=== PATIENT | male | born 1975 | race Two or more races ===

== ENCOUNTER → 2017-09-03 | Outpatient (CLI) | payer BC ==
[2017-09-03 10:34] LABS: Albumin 4.1 g/dL (3.4-5.0); Bilirubin, Direct 0.2 mg/dL (0-0.2); Bilirubin, Total 0.6 mg/dL (0.2-1.0); Total Protein 8.9 g/dL (6.4-8.2)
== END | disposition home or self-care (01) ==
LOC: LAB 09:32
PROVIDERS: ATTEND Internal Medicine Gastroenterology
DX: R79.89 Other specified abnormal findings of blood chemistry (principal)
CPT/HCPCS: 36415; 80076

== ENCOUNTER → 2017-09-09 | Outpatient (CLI) | payer BC ==
[2017-09-09 18:35] LABS: % Iron Saturation 4.4 % (20-55)
[2017-09-10 09:12] LABS: Hepatitis B Surface Antibody Negative
[2017-09-10 09:27] LABS: Hepatitis B Surface Antigen Negative (Negative)
[2017-09-10 09:50] LABS: Hepatitis C Antibody Negative (Negative)
[2017-09-10 09:51] LABS: Hepatitis A Total Antibody Negative; Hepatitis B Core Total AB Negative
== END | disposition home or self-care (01) ==
LOC: LAB 10:08
PROVIDERS: ATTEND Internal Medicine Gastroenterology
DX: R79.89 Other specified abnormal findings of blood chemistry (principal)
CPT/HCPCS: 36415; 83540; 83550; 86704; 86706; 86708; 86803; 87340

== ENCOUNTER → 2017-09-14 | Outpatient (CLI) | payer BC ==
[2017-09-14 11:06] LABS: Basophils # (auto) 0.1 uL; Eosinophils # (auto) 0.1 uL; Lymphocytes # (auto) 1.6 uL; Monocytes # (auto) 0.5 uL; Nucleated Red Blood Cells % 0.1 %
[2017-09-14 11:07] LABS: Basophils % (auto) 1.6 % (0.0-2.0); Hematocrit 44.7 % (41.0-53.0); Hemoglobin 14.4 g/dL (13.5-17.5); Lymphocytes % (auto) 20.3 % (10.0-50.0); Mean Corpuscular Hemoglobin 25.3 pg (28.0-32.0); Mean Corpuscular Hgb Conc. 32.2 g/dL (32.0-36.0); Mean Corpuscular Volume 78.7 fL (80.0-100.0); Monocytes % (auto) 6.4 % (0.0-12.0); Neutrophils # (auto) 5.7 uL; Neutrophils % (auto) 70.7 % (37.0-80.0); Platelet Count (auto) 395 10^3/uL (140-450); Red Blood Cells 5.68 10^6/uL (4.5-5.90); Red Cell Distribution Width 16.4 % (11.8-14.3)
[2017-09-14 11:16] LABS: INR 1.06 (0.9-1.15); Prothrombin Time 11.6 sec (9.37-12.3)
[2017-09-14 11:24] LABS: BUN/Creatinine Ratio 6.7; Bilirubin, Total 0.5 mg/dL (0.2-1.0); Calcium 9.1 mg/dL (8.5-10.1); Potassium 4.6 mmol/L (3.5-5.1); Total Protein 8.7 g/dL (6.4-8.2)
== END | disposition home or self-care (01) ==
LOC: LAB 10:41
DX: E11.65 Type 2 diabetes mellitus with hyperglycemia (principal)
CPT/HCPCS: 36415; 80053; 80061; 83036; 85025; 85610; 85730

== ENCOUNTER 2021-09-02 06:46 | Emergency (ER) | payer BC, MEDICAID ==
[~2021-09-02] VITALS: Ht 172.7 cm; Wt 113.4 kg
[2021-09-02 07:39] VITALS: BP 163/81
[2021-09-02 08:38] LABS: Urine Bacteria NONE SEEN /hpf (None Seen); Urine Blood Negative /uL (Negative); Urine Specific Gravity 1.019 (1.001-1.035); Urine WBC <1 /hpf (0 - 3)
[2021-09-02 08:43] LABS: Basophils # (auto) 0 10 ^3/uL (0-0.2); Basophils % (auto) 1.1 % (0.0-2.0); Eosinophils # (auto) 0 10 ^3/uL (0-0.8); Eosinophils % (auto) 0.6 % (0.0-7.0); Hematocrit 50.9 % (41.0-53.0); Hemoglobin 17.5 g/dL (13.5-17.5); Lymphocytes # (auto) 1.1 10 ^3/uL (0.4-5.4); Lymphocytes % (auto) 23.6 % (10.0-50.0); Mean Corpuscular Hemoglobin 31.7 pg (28.0-32.0); Mean Corpuscular Hgb Conc. 34.3 g/dL (32.0-36.0); Mean Corpuscular Volume 92.3 fL (80.0-100.0); Monocytes # (auto) 0.7 10 ^3/uL (0-1.3); Monocytes % (auto) 14.6 % (0.0-12.0); Neutrophils # (auto) 2.7 10 ^3/uL (1.6-8.6); Neutrophils % (auto) 60.1 % (37.0-80.0); Nucleated Red Blood Cells % 0.5 %; Red Blood Cells 5.51 10^6/uL (4.5-5.90); Red Cell Distribution Width 12.5 % (11.8-14.3); White Blood Cell 4.5 10^3/uL (4.4-10.8)
[2021-09-02 09:05] LABS: Potassium 4.7 mmol/L (3.5-5.1)
[2021-09-02 09:14] LABS: Albumin 3.5 g/dL (3.4-5.0); Bilirubin, Total 0.7 mg/dL (0.2-1.0); Calcium 8.2 mg/dL (8.5-10.1); Total Protein 8.2 g/dL (6.4-8.2)
[2021-09-02] MEDS ORDERED: PRED10TA PO (09:31)
[2021-09-02] MEDS ORDERED: ALBUAER3 IN (09:31)
[2021-09-02] MEDS ORDERED: AMOX-277 PO (09:31)
[2021-09-02] MEDS ORDERED: LIDOCAINE 1% HCL (LOCAL ANESTH.) INJ 20ML MDV ONE (10:33)
== END 2021-09-02 10:05 | disposition home or self-care (01) ==
LOC: ER 06:46
DX: U07.1 COVID-19 (principal); J06.9 Acute upper respiratory infection, unspecified; E11.9 Type 2 diabetes mellitus without complications
CPT/HCPCS: 36415; 71045; 80053; 81001; 83690; 85025; 87426; 99284; J2001

== ENCOUNTER 2024-01-08 05:27 | Emergency (ER) | payer MEDICAID ==
[~2024-01-08] VITALS: Ht 172.7 cm; Wt 127.7 kg
[~2024-01-08 05:27] MED LIST: ALBUAER3 IN; AMOX875T4 PO; GABA-339 PO; GLIP10TA21 PO; PRED10TA PO
[2024-01-08] MEDS: SODIUM CHLORIDE 0.9% 1,000 ML IVB ONE (08:00)
[2024-01-08 08:01] LABS: Urine Bacteria None Seen /hpf (None Seen)
[2024-01-08 08:19] LABS: Urine Blood Negative /uL (Negative); Urine Clarity Clear (Clear); Urine Color Light-Yellow (Yellow); Urine Protein, UAD Negative (Negative); Urine Specific Gravity 1.015 (1.001-1.035); Urine Urobilinogen Normal (Negative); Urine WBC 1 /hpf (0 - 3); Urine pH 5.5 (5.0-9.0)
[2024-01-08] MEDS: SODIUM CHLORIDE 0.9% 1,000 ML IV ONE (08:21)
[2024-01-08 08:30] LABS: Basophils # (auto) 0.1 10 ^3/uL (0-0.2); Eosinophils # (auto) 0.1 10 ^3/uL (0-0.8); Eosinophils % (auto) 1.5 % (0.0-7.0); Hematocrit 50.2 % (41.0-53.0); Hemoglobin 17.2 g/dL (13.5-17.5); Lymphocytes # (auto) 1.8 10 ^3/uL (0.4-5.4); Lymphocytes % (auto) 25.5 % (10.0-50.0); Mean Corpuscular Hemoglobin 31.9 pg (28.0-32.0); Mean Corpuscular Hgb Conc. 34.3 g/dL (32.0-36.0); Mean Corpuscular Volume 93.1 fL (80.0-100.0); Monocytes # (auto) 0.5 10 ^3/uL (0-1.3); Monocytes % (auto) 7.1 % (0.0-12.0); Neutrophils # (auto) 4.6 10 ^3/uL (1.6-8.6); Neutrophils % (auto) 64.9 % (37.0-80.0); Nucleated Red Blood Cells % 0.1 %; Red Blood Cells 5.39 10^6/uL (4.5-5.90); Red Cell Distribution Width 13.2 % (11.8-14.3); White Blood Cell 7.1 10^3/uL (4.4-10.8)
[2024-01-08] MEDS: KETOROLAC TROMETH 30 MG/ML 1ML VIAL IV ONE (08:31)
[2024-01-08] MEDS: METOCLOPRAMIDE HCL 5MG/ml INJ 2ml VIAL IV ONE (08:31)
[2024-01-08 08:35] LABS: Alanine Aminotransferase 31 U/L (7-40); Albumin 4.6 g/dL (3.2-4.8); Alkaline Phosphatase 127 U/L (46-116); Anion Gap 5 (5-15); Aspartate Aminotransferase 33 U/L (13-40); BUN/Creatinine Ratio 10.6 (10.0-20.0); Bilirubin, Total 0.7 mg/dL (0.2-1.0); Blood Urea Nitrogen 9 mg/dL (9-23); Calcium 9.6 mg/dL (8.5-10.1); Carbon Dioxide 27 mmol/L (20-30); Chloride 100 mmol/L (98-107); Glucose 210 mg/dL (74-106); Potassium 4.3 mmol/L (3.5-5.1); Sodium 132 mmol/L (136-145)
[2024-01-08 08:53] LABS: Lipase 39 U/L (12-53)
[2024-01-08 08:54] LABS: Magnesium 1.8 mg/dL (1.6-2.6)
[2024-01-08] MEDS: IOHEXOL 300 MG/ML 100ML BOTTLE IJ ONE (09:00)
[2024-01-08 10:08] VITALS: TEMP 98
[2024-01-08] MEDS: ONDANSETRON HCL 4 MG/2 ML VIAL IV ONE (10:13)
[2024-01-08] MEDS: MORPHINE SULFATE 4 MG/ML SYR/VIAL IV ONE (10:15)
[2024-01-08] MEDS ORDERED: METO-281 PO (10:37)
[2024-01-08] MEDS ORDERED: HYDR-4902 PO (10:37)
[2024-01-08 10:42] VITALS: O2SAT 96
[2024-01-08 10:46] VITALS: BP 141/76; PULSE 76; RESP 18
== END 2024-01-08 10:58 | disposition home or self-care (01) ==
LOC: ER 05:27
DX: I10 Essential (primary) hypertension (principal); E11.65 Type 2 diabetes mellitus with hyperglycemia; N20.0 Calculus of kidney; K76.0 Fatty (change of) liver, not elsewhere classified; R10.31 Right lower quadrant pain; F10.90 Alcohol use, unspecified, uncomplicated; Z79.899 Other long term (current) drug therapy; Y90.0 Blood alcohol level of less than 20 mg/100 ml
CPT/HCPCS: 36415; 74177; 80053; 81001; 83690; 83735; 85025; 96361; 96374; 96375; 99285; J1885; J2270; J2405; J2765; J7030; Q9967

== ENCOUNTER 2025-04-12 08:03 | Emergency (ER) | payer MEDICAID ==
[~2025-04-12] VITALS: Ht 172.7 cm; Wt 118.0 kg
[~2025-04-12 08:03] MED LIST changes: +HYDR-4902 PO; +METO-281 PO
--- NOTE | 2025-04-12 08:55 | ED.PDOC ---
General HPI Comments A 50-YEAR-OLD MALE WITH A HISTORY OF DIABETES, AND HEAVY ALCOHOL ABUSE, PRESENTS TO THE ED WITH A C/C OF LEFT-SIDED FLANK PAIN WITH THE ASSOCIATED RADIATING LEFT LOWER ABDOMINAL PAIN, AND NAUSEA. PATIENT STATES THAT HIS SYMPTOMS HAVE BEEN ONSET FOR THE PAST 4 DAYS, BUT NOTES THAT THEY HAVE WORSENED SINCE LAST NIGHT. MOVEMENT AND PHYSICAL ACTIVITY INCREASES THE PAIN. PATIENT NOTES HAVE NO ALLEVIATING FACTORS. PATIENT DENIES ANY VOMITING, DIARRHEA, DYSURIA, HEMATURIA, OR ANY OTHER ASSOCIATED SYMPTOMS, MODIFIERS AT THIS TIME. Chief Complaint: Flank Pain Time Seen by MD: 08:51 Reviewed notes: Nurses Notes, Medications, Allergies Allergies: Coded Allergies: NO KNOWN ALLERGIES (Unverified , 11/11/23) Home Meds Active Scripts Hydrocodone-Acetaminophen (Hydrocodone Bitartrate/AC 5-325 mg) 1 Tab Tab, 1 TAB PO BID for 5 Days, #10 TAB Prov:SUSAN CARRILLO MD 01/08/24 Metoclopramide Hcl (Reglan) 10 Mg Tab, 10 MG PO BID for 5 Days, #10 TAB Prov:SUSAN CARRILLO MD 01/08/24 Gabapentin (Gabapentin) 600 Mg Tab, 1 TAB PO BID, #40 TAB Prov:DARYN BHATT 11/11/23 Glipizide (Glipizide Er) 10 Mg Tab, 1 TAB PO DAILY, #30 TAB Prov:DARYN BHATT 11/11/23 Albuterol Sulfate (VENTOLIN MDI) 90 Mcg Ih, 90 MCG IN QIDP, #1 INH 0 Refills Prov:IVANA CRUMP 09/02/21 Prednisone (Prednisone) 10 Mg Tab, 10 MG PO BID for 5 Days, #10 MG 0 Refills Prov:IVANA CRUMP 09/02/21 Amoxicillin & Pot Clavulanate (Amoxicillin/Potassium Cla) 875 Mg Tab, 1 TAB PO BID for 10 Days, #20 TAB 0 Refills Prov:IVANA CRUMP 09/02/21 Information Source: Patient Mode of Arrival: Ambulatory Severity: Moderate Inability to void: None Timing: Days Duration: Intermittent, Days Prehospital treatment: None Onset: Spontaneous Symptoms: None History of: None Location: (L)Flank associated signs and symptoms: Abdominal Pain, Nausea Past Medical History PAST MEDICAL HISTORY: DM Surgical History: Denies all surgeries Family History Family History: Reviewed,noncontributory to illness Social History Smoker: Non-Smoker Alcohol: Heavy Drugs: Denies Drug Use Lives In: Home Constitutional: denies: chills, diaphoresis, fatigue, fever, malaise, sweats, weakness, others EENTM: denies: blurred vision, double vision, ear bleeding, ear discharge, ear drainage, ear pain, ear ringing, eye pain, eye redness, hearing loss, mouth pain, mouth swelling, nasal discharge, nose bleeding, nose congestion, nose pain, photophobia, tearing, throat pain, throat swelling, voice changes, others Respiratory: denies: cough, hemoptysis, orthopnea, SOB at rest, shortness of breath, SOB with excertion, stridor, wheezing, others Cardiovascular: denies: chest pain, dizzy spells, diaphoresis, Dyspnea on exertion, edema, irregular heart beat, left arm pain, lightheadedness, p alpitations, PND, syncope, others Gastrointestinal: denies: abdomen distended, abdominal pain, blood streaked bowels, constipated, diarrhea, dysphagia, difficulty swallowing, hematemesis, melena, nausea, poor appetite, poor fluid intake, rectal bleeding, rectal pain, vomiting, others Genitourinary: reports: flank pain; denies: burning, dysuria, frequency, hematuria, incontinence, penile discharge, penile sore, pain, testicle pain, testicle swelling, urgency, others Neurological: denies: dizziness, fainting, headache, left sided numbness, left sided weakness, numbness, paresthesia, pre-existing deficit, right sided numbness, right sided weakness, seizure, speech problems, tingling, tremors, weakness, others Musculoskeletal: denies: back pain, gout, joint pain, joint swelling, muscle pain, muscle stiffness, neck pain, others Integumetry: denies: bruises, change in color, change in hair/nails, dryness, laceration, lesions, lumps, rash, wounds, others Allergic/Immunocompromised: denies: Difficulty Healing, Frequent Infections, Hives, Itching, others Hematologic/Lymphatic: denies: anemia, blood clots, easy bleeding, easy bruising, swollen glands, others Endocrine: denies: excessive hunger, excessive sweating, excessive thirst, excessive urination, flushing, intolerance to cold, intolerance to heat, unexplained weight gain, unexplained weight loss, others Psychiatric: denies: anxiety, bipolar disorder, depression, hopeless, panic disorder, schizophrenia, sleepless, suicidal, others All Other Systems: Reviewed and Negative Physical Exam General Appearance: No Apparent Distress, Obese HEENT: Normal ENT Inspection, PERRL/EOMI, Pharynx Normal, TMs Normal Neck: Full Range of Motion, Non-Tender, Normal, Normal Inspection Respiratory: Chest Non-Tender, Lungs Clear, No Accessory Muscle Use, No Respiratory Distress, Normal Breath Sounds Cardiovascular: No Edema, No JVD, No Murmur, No Gallop, Normal Peripheral Pulses, Regular Rate/Rhythm Breast Exam: Deferred Gastrointestinal: LLQ, No Organomegaly, No Pulsatile Mass, Normal Bowel Sounds, Soft, Tenderness (LEFT FLANK TO LEFT LOWER ABD, NO GUARDING AND REBOUND TENDERNESS. ) Genitalia: Deferred Pelvic: Deferred Rectal: Deferred Extremities: No calf tenderness, Normal capillary refill, Normal inspection, Normal range of motion, Non-tender, No pedal edema Musculoskeletal : Apperance: Normal Neurologic: Alert, hack driver II-XII nml as Tested, No Motor Deficits, Normal Affect, Normal Mood, No Sensory Deficits Cerebellar Function: Normal Reflexes: Normal Skin: Dry, Normal Color, Warm Peripheral Pulses: 2+ carotid (R), 2+ carotid (L) Lymphatic: No Adenopathy Was a procedure done? Was a procedure done?: No Differential Diagnosis Kidney stone (Female): Musculoskeletal pain, N/A Kidney stone (Male): Pancreatitis, Strain, Urinary obstruction, Urolithiasis, Urinary tract infection Penile/Scrotal: N/A Urinary Problem (Male): Urolithiasis, UTI Urinary Problem (Female): N/A X-Ray, Labs, Meds, VS Vital Signs Date Time Temp Pulse Resp B/P (MAP) Pulse Ox O2 Delivery O2 Flow Rate FiO2 04/12/25 08:04 98.0 83 18 165/92 96 98.0 Lab Test 04/12/25 09:23 04/12/25 08:45 Range/Units White Blood Count 5.1 4.4-10.8 10^3/uL Red Blood Count 5.59 4.5-5.90 10^6/uL Hemoglobin 17.2 13.5-17.5 g/dL Hematocrit 49.6 41.0-53.0 % Mean Corpuscular Volume 88.7 80.0-100.0 fL Mean Corpuscular Hemoglobin 30.8 28.0-32.0 pg Mean Corpuscular Hemoglobin Concent 34.7 32.0-36.0 g/dL Red Cell Distribution Width 14.0 11.8-14.3 % Platelet Count 219 140-450 10^3/uL Mean Platelet Volume 8.2 6.9-10.8 fL Neutrophils (%) (Auto) 68.1 37.0-80.0 % Lymphocytes (%) (Auto) 21.0 10.0-50.0 % Monocytes (%) (Auto) 8.5 0.0-12.0 % Eosinophils (%) (Auto) 1.6 0.0-7.0 % Basophils (%) (Auto) 0.8 0.0-2.0 % Neutrophils # (Auto) 3.5 1.6-8.6 10 ^3/uL Lymphocytes # (Auto) 1.1 0.4-5.4 10 ^3/uL Monocytes # (Auto) 0.4 0-1.3 10 ^3/uL Eosinophils # (Auto) 0.1 0-0.8 10 ^3/uL Basophils # (Auto) 0 0-0.2 10 ^3/uL Nucleated Red Blood Cells 0.1 % Sodium Level 134 L 136-145 mmol/L Potassium Level 4.0 3.5-5.1 mmol/L Chloride Level 99 98-107 mmol/L Carbon Dioxide Level 26 20-31 mmol/L Anion Gap 9 5-15 Blood Urea Nitrogen 8 L 9-23 mg/dL Creatinine 0.88 0.700-1.30 mg/dL Glomerular Filtration Rate Calc 104 >90 mL/min BUN/Creatinine Ratio 9.1 L 10.0-20.0 Serum Glucose 318 H 74-106 mg/dL Calcium Level 9.1 8.7-10.4 mg/dL Total Bilirubin 0.7 0.2-1.0 mg/dL Aspartate Amino Transferase (AST) 31 13-40 U/L Alanine Aminotransferase (ALT) 33 7-40 U/L Alkaline Phosphatase 133 H 46-116 U/L Total Protein 7.5 5.7-8.2 g/dL Albumin 4.4 3.2-4.8 g/dL Lipase 48 12-53 U/L Urine Color Yellow Yellow Urine Clarity Clear Clear Urine pH 5.5 5.0-9.0 Urine Specific Letcher 1.021 1.001-1.035 Urine Protein 1+ H Negative Urine Ketones Trace Negative Urine Blood Negative Negative /uL Urine Nitrite Negative Negative Urine Bilirubin Negative Negative Urine Urobilinogen Normal Negative mg/dL Urine Leukocyte Esterase Negative Negative /uL Urine RBC 1 0 - 3 /hpf Urine Microscopic WBC 1 0-3 /HPF Urine Squamous Epithelial Cells None seen <5 /hpf Urine Bacteria None seen None Seen /hpf Urine Hyaline Casts Few 0 - 2 /lpf Urine Mucus Few None Seen Urine Glucose 3+ H Normal mg/dL PATIENT: ELIZABETH VALLES ACCT: [id number] UNIT: [id number] : 1975 LOC: ER ROOM / BED: / AGE / SEX: 50 / M ADM STATUS: REG ER SERVICE [id number] ORDERING PHYSICIAN: DARYN BHATT PROCEDURE(s): ABPL - CT AB PEL WO CON-NO ORAL OR IV REASON: LEFT FLANK PAIN TO LEFT LOWER ABD ORDER NUMBER(s): [id number], ACCESSION NUMBER(s): [id number] Exam: CT abdomen and Pelvis without contrast History: LEFT FLANK PAIN TO LEFT LOWER ABD Comparison Study: None available at time of dictation. TECHNIQUE: Multidetector CT of the abdomen was performed from lung bases to pubic symphysis. Imaging was performed without IV contrast. Axial, coronal and sagittal multiplanar reformats were obtained from the axial data set by the technologist. Radiation Dose Information: CT Dose: CTDI volume is 25 mGy. Dose-length product is 250 mGy*cm FINDINGS: Evaluation of solid organs is limited due to lack of intravenous contrast use. Findings: Lung Bases: No acute or significant lung base finding. Normal heart size. No p leural or pericardial effusion. Liver: Hepatic steatosis. Gallbladder and Biliary Tree: Unremarkable Spleen: Unremarkable Pancreas: The pancreas is grossly normal in appearance. Adrenal Glands: Unremarkable Kidneys: Kidneys are grossly normal without calculi or hydronephrosis. Bladder: Grossly unremarkable for degree of distention. Bowel: The stomach is grossly normal in appearance. Small bowel and colon are normal in caliber and distribution. The appendix is not visualized; however, no secondary findings of acute appendicitis identified. Ascites: Absent Lymphadenopathy: No mesenteric, retroperitoneal or periportal lymphadenopathy. Abdominal Wall and Mesentery: 19 mm umbilical hernia Vasculature: The visualized abdominal aorta is normal in size and caliber. Evaluation of abdominal and pelvic vessels is limited due to lack of intravenous contrast. Pelvic Organs: Unremarkable Musculoskeletal: No aggressive focal bony lesions, acute fractures or dislocation. Soft tissues: Unremarkable IMPRESSION: No acute abdominal or pelvic finding. Hepatic steatosis Radiation optimization: All CT scans at this facility use at least one of these dose optimization techniques: automated exposure control mA and/or kV adjustment per patient size (includes targeted exams where dose is matched to clinical indication) or iterative reconstruction. X-Ray, Labs, Meds, VS Comment EXTERNAL MEDICAL RECORDS REVIEWED: [NONE] INDEPENDENT HISTORIANS: [NONE] SOCIAL DETERMINANTS OF HEALTH: [NONE] LABS ORDERED: CBC, CMP, UA, LIPASE ORDERED AND PENDING REVIEWED AND INTERPRETED RESULTS: NONE IMAGING ORDERED: CT ABDOMINAL PELVIC ORDERED AND PENDING TREATMENTS ORDERED: NORCO 10/325 PO PROCEDURES PERFORMED: NONE CRITICAL CARE TIME: NONE I HAVE DISCUSSED THE PATIENT WITH THE ATTENDING PHYSICIAN (LORENA) AND S/HE AGREES WITH THE PATIENT'S PLAN OF CARE AND DISPOSITION. BASED ON HISTORY OF PRESENT ILLNESS, AND PHYSICAL EXAM, PATIENT WILL BE DISCHARGED HOME. DISCUSSED PLAN FOR DISCHARGE HOME WITH RX [ULTRAM 50MG]. MEDICATION WARNINGS GIVEN. SHARED DECISION MAKING: DISCUSSED WITH PATIENT THAT THEIR WORKUP WAS NORMAL. PATIENT INSTRUCTED TO FOLLOW UP WITH PRIMARY CARE PROVIDER IN 1-2 DAYS FOR RE- EVALUATION OF SYMPTOMS. PATIENT VERBALIZES UNDERSTANDING TO RETURN TO ED FOR NEW OR WORSENING SYMPTOMS OR IF FOLLOW UP WITH PCP CANNOT BE OBTAINED. PATIENT FEELS COMFORTABLE GOING HOME AT THIS TIME. ALL QUESTIONS ADDRESSED AT TIME OF DISCHARG E. Time of 1ST Reevaluation: 10:00 Reevaluation 1ST: Improved Patient Education/Counseling: Diagnosis, Treatment, Need For Follow Up Family Education/Counseling: Treatment, No Family Present Medical Screening: No EMC Exist At This Time SEPSIS Sepsis Screen Date sepsis recognized/suspect: Apr 12, 2025 Time Sepsis recognized/suspect: 804 Recent Procedure: No On Antibiotic Therapy: No Respiratory Rate >20: No Heart Rate >90: No Temp<36 C (96.8 F) or >38.3 C: No SBP <90 or MAP <65 mmHG: No New Acute Mental Status Change: No Is the patient on CPAP, BIPAP,: No Physician Orders Ct Ab Pel Wo Con-No Oral Or Iv (04/12/25 08:46) Vital Signs Date Time Temp Pulse Resp B/P (MAP) Pulse Ox O2 Delivery O2 Flow Rate FiO2 04/12/25 08:04 98.0 83 18 165/92 96 98.0 Laboratory Tests Test 04/12/25 09:23 White Blood Count 5.1 10^3/uL (4.4-10.8) Departure 1 Departure Time of Disposition: 10:00 Impression: Primary Impression: Left flank pain Additional Impression: Muscle strain Disposition: HOME / SELF CARE / HOMELESS Condition: Stable Additional Instructions: FOLLOW-UP WITH PCP IN 1 TO 2 DAYS. TAKE MEDICATIONS PRESCRIBED. RETURN TO ED FOR ANY NEW OR WORSENING SYMPTOMS. e-Prescriptions Tramadol HCl (Tramadol HCl) 50 Mg Tab 50 MG PO BID, #20 TAB Prov: DARYN BHATT 04/12/25 Discharged With: Self Critical Care Note Critical Care Time?: No Stability Stability form required: No Heart Score Heart Score: Heart Score Response (Comments) Value History N/A 0 EKG N/A 0 Age N/A 0 Risk Factors N/A 0 Troponin N/A 0 Total 0 I personally scribed for DARYN BHATT ([email or web address]) on 04/12/25 at 08:55. Electronically submitted by Evaristo Dickinson ([email or web address]). I personally scribed for DARYN BHATT ([email or web address]) on 04/12/25 at 08:56. Electronically submitted by Evaristo Dickinson ([email or web address]). I personally scribed for DARYN BHATT ([email or web address]) on 04/12/25 at 09:23. Electronically submitted by Evaristo Dickinson ([email or web address]). I personally scribed for DARYN BHATT ([email or web address]) on 04/12/25 at 09:57. Electronically submitted by Evaristo Dickinson ([email or web address]). DARYN BHATT Apr 12, 2025 08:55
[2025-04-12 09:17] LABS: Urine Protein, UAD 1+ (Negative)
--- NOTE | 2025-04-12 09:22 | DVH ---
Exam: CT abdomen and Pelvis without contrast History: LEFT FLANK PAIN TO LEFT LOWER ABD Comparison Study: None available at time of dictation. TECHNIQUE: Multidetector CT of the abdomen was performed from lung bases to pubic symphysis. Imaging was performed without IV contrast. Axial, coronal and sagittal multiplanar reformats were obtained fr om the axial data set by the technologist. Radiation Dose Information: CT Dose: CTDI volume is 25 mGy. Dose-length product is 250 mGy*cm FINDINGS: Evaluation of solid organs is limited due to lack of intravenous contrast use. Findings: Lung Bases: No acute or significant lung base finding. Normal heart size. No pleural or pericardial effusion. Liver: Hepatic steatosis. Gallbladder and Biliary Tree: Unremarkable Spleen: Unremarkable Pancreas: The pancreas is grossly normal in appearance. Adrenal Glands: Unremarkable Kidneys: Kidneys are grossly normal without calculi or hydronephrosis. Bladder: Grossly unremarkable for degree of distention. Bowel: The stomach is grossly normal in appearance. Small bowel and colon are normal in caliber and d istribution. The appendix is not visualized; however, no secondary findings of acute appendicitis id entified. Ascites: Absent Lymphadenopathy: No mesenteric, retroperitoneal or periportal lymphadenopathy. Abdominal Wall and Mesentery: 19 mm umbilical hernia Vasculature: The visualized abdominal aorta is normal in size and caliber. Evaluation of abdominal a nd pelvic vessels is limited due to lack of intravenous contrast. Pelvic Organs: Unremarkable Musculoskeletal: No aggressive focal bony lesions, acute fractures or dislocation. Soft tissues: Unremarkable IMPRESSION: No acute abdominal or pelvic finding. Hepatic steatosis Radiation optimization: All CT scans at this facility use at least one of these dose optimization jonnie hniques: automated exposure control mA and/or kV adjustment per patient size (includes targeted exam s where dose is matched to clinical indication) or iterative reconstruction.
[2025-04-12 09:48] LABS: Hematocrit 49.6 % (41.0-53.0); Hemoglobin 17.2 g/dL (13.5-17.5); Mean Corpuscular Hemoglobin 30.8 pg (28.0-32.0); Mean Corpuscular Volume 88.7 fL (80.0-100.0); Nucleated Red Blood Cells % 0.1 %
[2025-04-12 09:55] LABS: Alanine Aminotransferase 33 U/L (7-40); Albumin 4.4 g/dL (3.2-4.8); Alkaline Phosphatase 133 U/L (46-116); Anion Gap 9 (5-15); BUN/Creatinine Ratio 9.1 (10.0-20.0); Bilirubin, Total 0.7 mg/dL (0.2-1.0); Blood Urea Nitrogen 8 mg/dL (9-23); Calcium 9.1 mg/dL (8.7-10.4); Carbon Dioxide 26 mmol/L (20-31); Chloride 99 mmol/L (98-107); Glucose 318 mg/dL (74-106); Potassium 4.0 mmol/L (3.5-5.1); Sodium 134 mmol/L (136-145); Total Protein 7.5 g/dL (5.7-8.2)
[2025-04-12 10:14] LABS: Lipase 48 U/L (12-53)
[2025-04-12] MEDS ORDERED: TRAM-626 PO (10:31)
[2025-04-12] MEDS: HYDROcodone-ACET 10/325MG TAB PO ONE (10:35)
[2025-04-12 10:36] VITALS: BP 154/76; PULSE 79; RESP 16; TEMP 97.6; O2SAT 95
== END 2025-04-12 10:40 | disposition home or self-care (01) ==
LOC: ER 08:03
DX: T14.8XXA Other injury of unspecified body region, initial encounter (principal); R10.32 Left lower quadrant pain; E11.9 Type 2 diabetes mellitus without complications; Z79.899 Other long term (current) drug therapy; X58.XXXA Exposure to other specified factors, initial encounter; Y93.89 Activity, other specified; Y92.89 Other specified places as the place of occurrence of the external cause; Y99.8 Other external cause status
CPT/HCPCS: 36415; 74176; 80053; 81001; 83690; 85025

== ENCOUNTER 2025-04-20 08:55 | Outpatient (CLI) | payer MEDICAID ==
[~2025-04-20 08:55] MED LIST changes: +TRAM-626 PO
[2025-04-20 09:12] LABS: Hematocrit 46.6 % (41.0-53.0); Hemoglobin 16.5 g/dL (13.5-17.5); Mean Corpuscular Hemoglobin 31.7 pg (28.0-32.0); Mean Corpuscular Volume 89.5 fL (80.0-100.0); Nucleated Red Blood Cells % 0.1 %
[2025-04-20 09:31] LABS: Alanine Aminotransferase 32 U/L (7-40); Albumin 4.3 g/dL (3.2-4.8); Anion Gap 8 (5-15); BUN/Creatinine Ratio 11.8 (10.0-20.0); Blood Urea Nitrogen 10 mg/dL (9-23); Carbon Dioxide 28 mmol/L (20-31); Chloride 98 mmol/L (98-107); Cholesterol 164 mg/dL (< 200); HDL Cholesterol 46 mg/dL (40-59); Potassium 4.0 mmol/L (3.5-5.1); Total Protein 7.6 g/dL (5.7-8.2)
[2025-04-20 09:32] LABS: Alkaline Phosphatase 159 U/L (46-116); Bilirubin, Total 0.4 mg/dL (0.2-1.0); Calcium 8.6 mg/dL (8.7-10.4); Glucose 340 mg/dL (74-106); Sodium 134 mmol/L (136-145); Triglycerides 285 mg/dL (< 150)
[2025-04-20 09:37] LABS: Microalb/Creat Ratio, Urine 34.0
== END 2025-04-20 17:00 | disposition home or self-care (01) ==
LOC: LAB 08:55
PROVIDERS: ATTEND Nurse Practitioner Family
DX: I10 Essential (primary) hypertension (principal); E11.9 Type 2 diabetes mellitus without complications; Z00.01 Encounter for general adult medical examination with abnormal findings
CPT/HCPCS: 36415; 80053; 80061; 82043; 82570; 83036; 84443; 85025

== ENCOUNTER 2025-04-22 15:14 | Inpatient (IN) | payer MEDICAID ==
[~2025-04-22] VITALS: Ht 172.7 cm; Wt 163.0 kg
[2025-04-22] MEDS ORDERED: KETOROLAC TROMETH 60MG/2ML VIAL IM ONE (16:30)
--- NOTE | 2025-04-22 16:57 | ED.PDOC ---
Musculoskeletal HPI Comments This is a 50 year old male GERSON presenting to the ED with chief complaint of left ankle pain s/p fall and syncope. Patient reports that he had drank approximately 8 beers this afternoon before he had fell backwards and blacked out. Patient relays that when he had woken up, he was unable to move or get up on his own due to having 10/10 pain in his left ankle, stating that he may have "broke it." Patient notes being unable to ambulate at this time due to pain. Patient denies any numbness, weakness, headache, N/V, or back pain. Patient endorses that he drank a 6-pack last night and also drank this morning prior to the fall. PMHx: DM, Fatty Liver Disease PSHx: Denies HPI: Poor Historian. REVIEW OF SYSTEMS: CONSTITUTIONAL: Denies acute: fever, diaphoresis, chills, HEAD: Denies acute: headache, photophobia Eyes: Denies acute: Double vision, vision loss, eye pain, eye discharge. EARS: Denies acute: tinnitus, hearing loss, ear discharge, ear pain, THROAT: Denies acute: sore throat, swelling, difficulty swallowing , pain with swallowing, change in voice. NECK: Denies acute: neck pain, neck swelling, stiff neck. HEART: Denies acute : chest pain, palpitations, LUNGS: Denies acute: SOB, wheezing, cough, hemoptysis ABDOMEN: Denies acute: abdominal pain, Nausea, Vomiting, diarrhea, melena , hematemesis, hematochezia SKIN: Denies acute: rash, redness, lesions, itchiness. EXTREMITIES: Denies acute: calf pain, numbness, tingling, weakness, Denies acute: Low back pain. Neuro: Denies acute: focal neurological deficit, motor or sensory focal neurological deficit, tremors, seizure like activity, confusion, dizziness, change in mental status, loss of bowel or bladder function, cauda equina like symptoms. : Denies acute: dysuria, hematuria, flank pain, increase in urinary frequency. PSYCH: Denies acute: hallucination, suicidal ideation, homicidal ideation. PHYSICAL EXAM: General: -----mild to moderate---acute distress, awake and alert. Head: normocephalic, atraumatic. Neck: supple, trachea is midline, no swelling. Throat: Normal phonation. Eyes:, no erythema, no purulent discharge, no proptosis, no icterus. Heart: regular rate, regular rhythm, no significant murmur appreciated. Lungs: no apparent respiratory distress, Able to speak in full sentences. No wheezing, no rhonchi, no crackles. No stridors Clear to auscultation bilaterally. Abdomen: non tender to palpation, non distended, soft, no guarding, no rebound, + bowel sounds. Please Neuro: Awake, Alert, oriented to name, self, situation, follows commands GCS=15. Speech is normal. Skin: no petechia, no purpura, no cyanosis, non-pale, not jaundice. Lower extremities: --no - Pitting edema no calf TTP. Decreased range of motion of the left ankle secondary to pain. The medial lateral malleoli are tender to palpation. Makes eye contact. moves all four extremities. Face: no apparent facial droop. CN 2-12 are grossly intact, Pedal pulses are palpable. No nuchal rigidity, Kernig's sign, Brudzinski's sign, no meningeal signs. ED COURSE: DISCLAIMER: This medical document was created using an electronic medical record system with voice recognition software and computerized dictation system. Although this document has been carefully reviewed, there might still be some phonetic and typographical errors. Occasional wrong-word or "sound-alike" substitutions may have occurred due to the inherent limitations of voice recognition software. These areas are purely typographical due to imperfections of the software programs and do not reflect any compromise in the patient's medical care. Please read the chart carefully and recognize, using context, where these substitutions have occurred. Chief Complaint: Lower Extremity Time Seen by MD: 16:54 Reviewed Notes: Medications, Allergies Allergies: Coded Allergies: NO KNOWN ALLERGIES (Unverified , 11/11/23) Home Meds Active Scripts Tramadol HCl (Tramadol HCl) 50 Mg Tab, 50 MG PO BID, #20 TAB Prov:DARYN BHATT 04/12/25 Hydrocodone-Acetaminophen (Hydrocodone Bitartrate/AC 5-325 mg) 1 Tab Tab, 1 TAB PO BID for 5 Days, #10 TAB Prov:SUSAN CARRILLO MD 01/08/24 Metoclopramide Hcl (Reglan) 10 Mg Tab, 10 MG PO BID for 5 Days, #10 TAB Prov:SUSAN CARRILLO MD 01/08/24 Gabapentin (Gabapentin) 600 Mg Tab, 1 TAB PO BID, #40 TAB Prov:DARYN BHATT 11/11/23 Glipizide (Glipizide Er) 10 Mg Tab, 1 TAB PO DAILY, #30 TAB Prov:DARYN HBATT 11/11/23 Albuterol Sulfate (VENTOLIN MDI) 90 Mcg Ih, 90 MCG IN QIDP, #1 INH 0 Refills Prov:IVANA CRUMP 09/02/21 Prednisone (Prednisone) 10 Mg Tab, 10 MG PO BID for 5 Days, #10 MG 0 Refills Prov:IVANA CRUMP 09/02/21 Amoxicillin & Pot Clavulanate (Amoxicillin/Potassium Cla) 875 Mg Tab, 1 TAB PO BID for 10 Days, #20 TAB 0 Refills Prov:IVANA CRUMP 09/02/21 Information Source: Patient Mode of Arrival: EMS Was a procedure done? Was a procedure done?: No Differential Diagnosis EXT Differential Diagnosis: Fracture, Sprain, Dislocation, Gout, DJD, Contusion, Strain, Septic, Neurovascular injury, Arthritis, Bursitis Other Differential Diagnosis As far as the syncope and collapse: Anemia, CVA, dehydration, dysrhythmia, electrolyte imbalance, encephalopathy, Guillain-[place], hypoglycemia, hypotension, hypovolemia, Meniere's disease, myasthenia gravis, [place], pulmonary embolus, renal failure, respiratory failure, TIA, VPI, vertigo central, vertigo peripheral, vestibular neuronitis. Drug abuse, alcohol abuse X-Ray, Labs, Meds, VS Vital Signs Date Time Temp Pulse Resp B/P (MAP) Pulse Ox O2 Delivery O2 Flow Rate FiO2 04/22/25 20:38 139/80 04/22/25 15:25 98.3 83 15 139/78 97 98.3 Lab Test 04/22/25 19:18 04/22/25 18:46 04/22/25 18:20 04/22/25 17:28 Range/Units Lactic Acid Level 2.0 2.5 *H 0.4-2.0 mmol/L Troponin I High Sensitivity < 3 L < 3 L < 3 L </=54 ng/L Urine Color Colorless Yellow Urine Clarity Clear Clear Urine pH 5.5 5.0-9.0 Urine Specific [place] 1.002 1.001-1.035 Urine Protein Negative Negative Urine Ketones Negative Negative Urine Blood Negative Negative /uL Urine Nitrite Negative Negative Urine Bilirubin Negative Negative Urine Urobilinogen Normal Negative mg/dL Urine Leukocyte Esterase Negative Negative /uL Urine RBC None seen 0 - 3 /hpf Urine Microscopic WBC < 1 0-3 /HPF Urine Squamous Epithelial Cells Few <5 /hpf Urine Bacteria None seen None Seen /hpf Urine Glucose 4+ H Normal mg/dL Urine Opiates Screen Neg NEGATIVE Urine Fentanyl Screen Neg NEGATIVE Urine Barbiturates Screen Neg NEGATIVE Urine Phencyclidine Screen Neg NEGATIVE Urine Amphetamines Screen Neg NEGATIVE Urine Benzodiazepines Screen Neg NEGATIVE Urine Cocaine Screen Neg NEGATIVE Urine Cannabinoids Screen Pos NEGATIVE White Blood Count 9.2 # 4.4-10.8 10^3/uL Red Blood Count 5.74 4.5-5.90 10^6/uL Hemoglobin 18.1 H 13.5-17.5 g/dL Hematocrit 51.0 41.0-53.0 % Mean Corpuscular Volume 88.9 80.0-100.0 fL Mean Corpuscular Hemoglobin 31.5 28.0-32.0 pg Mean Corpuscular Hemoglobin Concent 35.4 32.0-36.0 g/dL Red Cell Distribution Width 14.3 11.8-14.3 % Platelet Count 287 140-450 10^3/uL Mean Platelet Volume 7.8 6.9-10.8 fL Neutrophils (%) (Auto) 79.3 37.0-80.0 % Lymphocytes (%) (Auto) 14.6 10.0-50.0 % Monocytes (%) (Auto) 5.2 0.0-12.0 % Eosinophils (%) (Auto) 0.2 0.0-7.0 % Basophils (%) (Auto) 0.7 0.0-2.0 % Neutrophils # (Auto) 7.3 1.6-8.6 10 ^3/uL Lymphocytes # (Auto) 1.3 0.4-5.4 10 ^3/uL Monocytes # (Auto) 0.5 0-1.3 10 ^3/uL Eosinophils # (Auto) 0 0-0.8 10 ^3/uL Basophils # (Auto) 0.1 0-0.2 10 ^3/uL Nucleated Red Blood Cells 0.1 % Sodium Level 133 L 136-145 mmol/L Potassium Level 4.4 3.5-5.1 mmol/L Chloride Level 99 98-107 mmol/L Carbon Dioxide Level 24 20-31 mmol/L Anion Gap 10 5-15 Blood Urea Nitrogen 10 9-23 mg/dL Creatinine 0.76 0.700-1.30 mg/dL Glomerular Filtration Rate Calc 109 >90 mL/min BUN/Creatinine Ratio 13.2 10.0-20.0 Serum Glucose 279 H 74-106 mg/dL Calcium Level 8.8 8.7-10.4 mg/dL Magnesium Level 2.0 1.6-2.6 mg/dL Total Bilirubin 0.6 0.2-1.0 mg/dL Aspartate Amino Transferase (AST) 52 H 13-40 U/L Alanine Aminotransferase (ALT) 42 H 7-40 U/L Alkaline Phosphatase 102 46-116 U/L Creatine Kinase 177 H 46-171 U/L Total Protein 7.8 5.7-8.2 g/dL Albumin 4.3 3.2-4.8 g/dL Plasma/Serum Blood Alcohol 271.9 H <10 mg/dL Current Medications Medications (Trade) Dose Ordered Sig/Jaiden Route Start Time Stop Time Status Last Admin Sodium Chloride 1,000 ml @ 1,000 mls/hr Q1H ONCE IV 04/22/25 17:00 04/22/25 17:59 DC 04/22/25 19:26 Sodium Chloride 1,000 ml @ 1,000 mls/hr Q1H ONCE IV 04/22/25 18:15 04/22/25 19:14 DC 04/22/25 19:30 Ketorolac Tromethamine (Toradol Injection) 30 mg ONCE ONCE IV 04/22/25 18:45 04/22/25 18:56 DC 04/22/25 19:22 Fentanyl Citrate 100 mcg ONCE ONCE IV 04/22/25 20:00 04/22/25 20:02 DC 04/22/25 20:[address] [address] Ph: [phone] DIAGNOSTIC IMAGING Diagnostic Imaging Report : [id number] Signed PATIENT: ELIZABETH VALLES ACCT: [id number] UNIT: [id number] : 1975 LOC: ER ROOM / BED: / AGE / SEX: 50 / M ADM STATUS: REG ER SERVICE 1654 ORDERING PHYSICIAN: NANETTE HATCH DO PROCEDURE(s): HWOCT - HEAD WITHOUT CONTRAST REASON: ETOH, FALL ORDER NUMBER(s): [id number], ACCESSION NUMBER(s): [id number] EXAM: CT HEAD WITHOUT CONTRAST INDICATION: ETOH, FALL TECHNIQUE: CT of the head without intravenous contrast. Radiation Dose : 1. Head: CT Dose: CTDI volume is 67.37 mGy. Dose-length product is 1.71 mGy*cm The dose indicators for CT are the volume Computed Tomography (CT) Dose Index (CTDIvol) and the Dose Length Product (DLP), and are measured in units of mGy and mGy-cm, respectively. These indicators are not patient dose, but values generated from the CT scanner acquisition factors. The report includes radiation exposure data for exposures received during this examination. COMPARISON: None FINDINGS: There is no evidence of acute intracranial hemorrhage, extra-axial collection, mass effect, midline shift, herniation or hydrocephalus. The ventricles, sulci and cisterns are age appropriate. The gracia-white differentiation is intact. Patchy periventricular and subcortical white matter hypoattenuation is nonspecif ic but may be related to small vessel ischemic disease. The visualized paranasal sinuses and mastoid air cells are clear. The surrounding soft tissues and osseous structures are unremarkable. IMPRESSION: 1. No acute intracranial abnormality. Radiation optimization: All CT scans at this facility use at least one of these dose optimization techniques: automated exposure control mA and/or kV adjustment per patient size (includes targeted exams where dose is matched to clinical indication) or iterative reconstruction. ATED BY: MARK SYLVESTER MD DICTATED DATE/TIME: 04/22/251731 SIGNED BY: MARK SYLVESTER MD SIGNED DATE/TIME: 04/22/251731 CC: [place] [id number] Ph: [phone] DIAGNOSTIC IMAGING Diagnostic Imaging Report : [id number] Signed PATIENT: ELIZABETH VALLES ACCT: [id number] UNIT: [id number] : 1975 LOC: ER ROOM / BED: / AGE / SEX: 50 / M ADM STATUS: REG ER SERVICE 52 ORDERING PHYSICIAN: NANETTE HATCH DO PROCEDURE(s): CS2 - CERVICAL WITHOUT CONTRAST REASON: ETOH, FALL ORDER NUMBER(s): [id number], ACCESSION NUMBER(s): [id number] EXAM: CT CERVICAL WITHOUT CONTRAST HISTORY: ETOH, FALL COMPARISON: None CTDIvol 28.78 mGy, DLP 1.78 mGy*cm. TECHNIQUE: Multiple axial CT images of the spine were obtained using bone algorithm. Axial and coronal reformatting was done. Bone and soft tissue windows were reviewed. FINDINGS: No CT evidence of definite acute fracture, spinal dislocation, or significant appearing acute subluxation is seen. The visualized paraspinal soft tissues are grossly unremarkable. Multilevel degenerative changes of the spine. IMPRESSION: 1. No definite CT evidence of acute fracture or dislocation of the bony cervical spine. MRI recommended if clinical symptoms persist Mild reversal of the normal cervical lordotic curvature ATED BY: MARK SYLVESTER MD DICTATED DATE/TIME: 04/22/251735 SIGNED BY: MARK SYLVESTER MD SIGNED DATE/TIME: 04/22/251735 CC: [place] [id number] Ph: [phone] DIAGNOSTIC IMAGING Diagnostic Imaging Report : [id number] Signed PATIENT: ELIZABETH VALLES ACCT: [id number] UNIT: [id number] : 1975 LOC: ER ROOM / BED: / AGE / SEX: 50 / M ADM STATUS: REG ER SERVICE 52 ORDERING PHYSICIAN: NANETTE HATCH DO PROCEDURE(s): LANK2 - L ANKLE 2 VIEW XRAY REASON: ETOH, FALL ORDER NUMBER(s): [id number], ACCESSION NUMBER(s): [id number] CLINICAL INDICATION: ETOH, FALL TECHNIQUE: 3-view XY L ANKLE 2 VIEW XRAY Comparison: XY R FOOT 3 VIEW XRAY on DOS: 11/11/23 FINDINGS/IMPRESSION: : Fracture of the medial malleolus. Fracture of the lateral malleolus/ distal fibula. Calcaneus not well profiled. Calcaneal fracture can not be excluded. IMPRESSION: 1. Fractures ATED BY: MARK SYLVESTER MD DICTATED DATE/TIME: 04/22/251729 SIGNED BY: MARK SYLVESTER MD SIGNED DATE/TIME: 04/22/251729 CC: Time of 1ST Reevaluation: 17:54 Reevaluation 1ST: Unchanged Time of 2ND Reevaluation: 19:38 (Case discussed with orthopedic surgeon on-call Dr. Jenkins. He will follow in consult. We will do an ORIF procedure this coming Thursday. Wants NPO after midnight. And also requested the medicine team to obtain consent for procedure.) Patient Education/Counseling: Diagnosis, Treatment Family Education/Counseling: No Family Present Comments MDM: patient presented with the above HPI.---ankle pain status post fal l/syncope and collapse---workup was initiated. patient was found with the above mentioned diagnosis. the following medications were ordered: please refer to order lists of meds and tests obtained by myself Dr. Hatch. Patient ED course and VS have been stabilized. Patient has been reassessed in the ED and remained in a stable condition. Pertinent incidental findings were discussed with the patient and/or family. Patient/family voices understanding and is agreeable with plan. Patient has been observed in the ED adequate length of time to insure improvement/stability. Escalation of care considered: Consideration of escalation to observation or admission Patient was given fluids, pain control, splint was ordered. C-collar was ordered. Imaging studies were unremarkable of the head and cervical spine. Orthopedic surgery was consulted. Patient was ADMITTED to the medicine team for further evaluation and treatment of their presentation. All the reports of any imaging studies that were ordered by myself were reviewed by myself. Departure 1 Departure Time of Disposition: 19:38 Impression: Primary Impression: Alcohol abuse Additional Impressions: Closed head injury Syncope and collapse Ankle fracture, left Disposition: ADMITTED INPATIENT Admit to: Tele Condition: Guarded Discharged With: Self Critical Care Note Critical Care Time?: Yes (55 min-critical care time only) I personally scribed for NANETTE HATCH DO ([email or web address]) on 04/22/25 at 16:57. Electronically submitted by Oswaldo Mckay ([email or web address]). I personally scribed for NANETTE HATCH DO ([email or web address]) on 04/22/25 at 18:46. Electronically submitted by Shahriar Varghese ([email or web address]). I personally scribed for NANETTE HATCH DO ([email or web address]) on 04/22/25 at 18:46. Electronically submitted by Shahriar Varghese ([email or web address]). NANETTE HATCH DO Apr 22, 2025 16:57
--- NOTE | 2025-04-22 17:32 | DVH ---
CLINICAL INDICATION: ETOH, FALL TECHNIQUE: 3-view XY L ANKLE 2 VIEW XRAY Comparison: XY R FOOT 3 VIEW XRAY on DOS: 11/11/23 FINDINGS/IMPRESSION: : Fracture of the medial malleolus. Fracture of the lateral malleolus/ distal fibula. Calcaneus not well profiled. Calcaneal fracture can not be excluded. IMPRESSION: 1. Fractures
--- NOTE | 2025-04-22 17:34 | DVH ---
EXAM: CT HEAD WITHOUT CONTRAST INDICATION: ETOH, FALL TECHNIQUE: CT of the head without intravenous contrast. Radiation Dose : 1. Head: CT Dose: CTDI volume is 67.37 mGy. Dose-length product is 1.71 mGy*cm The dose indicators for CT are the volume Computed Tomography (CT) Dose Index (CTDIvol) and the Dose Length Product (DLP), and are measured in units of mGy and mGy-cm, respectively. These indicators are not patient dose, but values generated from the CT scanner acquisition factors. The report includes radiation exposure data for exposures received during this examination. COMPARISON: None FINDINGS: There is no evidence of acute intracranial hemorrhage, extra-axial collection, mass effect, midline s hift, herniation or hydrocephalus. The ventricles, sulci and cisterns are age appropriate. The gracia-white differentiation is intact. Patchy periventricular and subcortical white matter hypoattenuation is nonspecific but may be related to small vessel ischemic disease. The visualized paranasal sinuses and mastoid air cells are clear. The surrounding soft tissues and osseous structures are unremarkable. IMPRESSION: 1. No acute intracranial abnormality. Radiation optimization: All CT scans at this facility use at least one of these dose optimization jonnie hniques: automated exposure control mA and/or kV adjustment per patient size (includes targeted exam s where dose is matched to clinical indication) or iterative reconstruction.
--- NOTE | 2025-04-22 17:39 | DVH ---
EXAM: CT CERVICAL WITHOUT CONTRAST HISTORY: ETOH, FALL COMPARISON: None CTDIvol 28.78 mGy, DLP 1.78 mGy*cm. TECHNIQUE: Multiple axial CT images of the spine were obtained using bone algorithm. Axial and childress l reformatting was done. Bone and soft tissue windows were reviewed. FINDINGS: No CT evidence of definite acute fracture, spinal dislocation, or significant appearing acu te subluxation is seen. The visualized paraspinal soft tissues are grossly unremarkable. Multilevel degenerative changes of the spine. IMPRESSION: 1. No definite CT evidence of acute fracture or dislocation of the bony cervical spine. MRI recommended if clinical symptoms persist Mild reversal of the normal cervical lordotic curvature
[2025-04-22 17:41] LABS: Hematocrit 51.0 % (41.0-53.0); Hemoglobin 18.1 g/dL (13.5-17.5); Mean Corpuscular Hemoglobin 31.5 pg (28.0-32.0); Mean Corpuscular Volume 88.9 fL (80.0-100.0); Nucleated Red Blood Cells % 0.1 %
[2025-04-22 17:57] LABS: Albumin 4.3 g/dL (3.2-4.8); Alkaline Phosphatase 102 U/L (46-116); Anion Gap 10 (5-15); BUN/Creatinine Ratio 13.2 (10.0-20.0); Blood Urea Nitrogen 10 mg/dL (9-23); Calcium 8.8 mg/dL (8.7-10.4); Carbon Dioxide 24 mmol/L (20-31); Chloride 99 mmol/L (98-107); Magnesium 2.0 mg/dL (1.6-2.6); Potassium 4.4 mmol/L (3.5-5.1); Total Protein 7.8 g/dL (5.7-8.2)
[2025-04-22 17:58] LABS: Bilirubin, Total 0.6 mg/dL (0.2-1.0)
[2025-04-22 18:09] LABS: Alanine Aminotransferase 42 U/L (7-40); Creatine Kinase IFCC 177 U/L (46-171); Glucose 279 mg/dL (74-106); Sodium 133 mmol/L (136-145)
[2025-04-22 18:19] LABS: Lactic Acid w/Reflex 2.5 mmol/L (0.4-2.0)
[2025-04-22 18:58] LABS: Urine Protein, UAD Negative (Negative)
[2025-04-22 19:14] LABS: Cannabinoid Screen, Urine Pos (NEGATIVE)
[2025-04-22 19:15] LABS: Barbiturate Scree,Urine Neg (NEGATIVE); Opiate Scree,Urine Neg (NEGATIVE)
[2025-04-22 19:16] LABS: Amphetamine Screen, Urine Neg (NEGATIVE); Benzodiazephine Screen, Urine Neg (NEGATIVE); Cocaine Screen, Urine Neg (NEGATIVE); Phencyclidine Screen, Urine Neg (NEGATIVE)
[2025-04-22] MEDS: KETOROLAC TROMETH 30 MG/ML 1ML VIAL IV ONE (19:22)
[2025-04-22] MEDS: SODIUM CHLORIDE 0.9% 1,000 ML IV ONE ×2 (19:26→19:30)
[2025-04-22] MEDS: fentaNYL CITRATE 100 MCG/2 ML VL IV ONE (20:38)
[2025-04-22] MEDS ORDERED: DEXTROSE (50%) 50ML SYRG IV PRN (22:45)
[2025-04-22] MEDS ORDERED: ACETAMINOPHEN 325 MG TAB PO PRN (23:00)
[2025-04-22] MEDS: ACCU-CHEK COMFORT CURVE STRIP VI SCH (23:38)
[2025-04-22] MEDS: InsuLIN REG 1unit/0.01ml Soln (100units/ml) SC SCH (23:38)
--- NOTE | 2025-04-22 23:41 | DVH ---
CHEST RADIOGRAPH Indication: sob Technique: Single frontal view of the chest was obtained COMPARISON: CHEST XRAY 1 VIEW on DOS: 09/02/21 FINDINGS: Lines and Tubes: None Lungs: Clear Pleura: Right CP angle has been cut off on this radiograph. No significant pleural effusion. No pneum othorax. Cardiomediastinal contours: Unremarkable IMPRESSION: No abnormality demonstrated.
[2025-04-22] MEDS: FOLIC ACID 1 MG TAB PO ONE (23:43)
[2025-04-22] MEDS: THIAMINE 100mg/ml INJ (200mg/2ml VIAL) IV ONE (23:43)
--- NOTE | 2025-04-22 23:46 | DVHHPRES ---
History of Present Illness Resident Creating Document: CELIA SANTOYO RESIDENT History of Present Illness Patient is a 50-year-old male with past medical history of type 2 diabetes, who comes in after sustaining a mechanical fall. Patient notes he had multiple drinks of alcohol this morning after which he sustained a fall details of which he does not remember. Patient notes he woke up on the floor and could not move he dragged himself to his bed where he used his phone to called 911. Patient endorses heavy history of alcohol use with 6 pack every day for the last 15-20 years. Ankle x-ray showed fracture of the medial and lateral malleolus with calcaneal fracture not excluded. Patient was also noted to be in mild alcohol withdrawal with CIWA score 8-9. Past Medical History Type 2 diabetes Past Surgical History Appendectomy Past Social History Smoking: Denies Alcohol: 6 drinks per day for the last 15 years Drugs: Denies Lives with roommates. Review of Systems Constitutional: No: Fever, Chills, Sweats, Weakness, Malaise, Other Eyes: No: Pain, Vision change, Conjunctivae inflammation, Eyelid inflammation, Other, Redness ENT: No: Ear pain, Ear discharge, Nose pain, Nose discharge, Nose congestion, Mouth pain, Mouth swelling, Throat pain, Throat swelling, Other Respiratory: SOB with excertion; No: Cough, Dry, Shortness of breath, Wheezing, Hemoptysis, Pleuritic Pain, Sputum, Wheezing, Other Cardiovascular: No: Chest Pain, Palpitations, Orthopnea, Paroxysmal Noc. Dyspnea, Edema, Lt Headedness, Other Gastrointestinal: Nausea, Vomiting; No: Abdominal Pain, Diarrhea, Constipation, Melena, Hematochezia, Other Genitourinary: No Dysuria, No Frequency, No Incontinence, No Hematuria, No Retention, No Other Musculoskeletal: leg pain, foot pain; No: other, neck pain, shoulder pain, arm pain, back pain, hand pain Skin: No: Rash, Lesions, Jaundice, Bruising, Other Neurological: No: Weakness, Numbness, Incoordination, Change in speech, Confusion, Seizures, Other Allergies: Coded Allergies: NO KNOWN ALLERGIES (Unverified , 11/11/23) Medications Current Medications Medications Dose Ordered Sig/Jaiden Route Start Time Stop Time Status Last Admin Dose Admin Enoxaparin Sodium 40 mg DAILY SC 04/23/25 10:00 Diagnostic Test (Pha) 1 strip IQ4HR 04/23/25 00:00 04/22/25 23:38 1 STRIP Insulin Human Regular IQ4HR SC 04/23/25 00:00 04/22/25 23:38 6 UNITS Dextrose 50 ml UD PRN IV 04/22/25 22:45 Thiamine HCl 100 mg DAILY IV 04/23/25 10:00 Folic Acid 1 mg/ Magnesium Sulfate 8 meq/ Multivitamins 10 ml/Thiamine HCl 100 mg/Sodium Chloride 1,013.2 ml @ 126.247 mls/hr DAILY@1800 INJ 04/23/25 18:00 Folic Acid 1 mg DAILY PO 04/23/25 10:00 Acetaminophen 650 mg Q4HP PRN PO 04/22/25 23:00 Acetaminophen/ Hydrocodone Bitart 1 tab Q6HPRN PRN PO 04/22/25 23:00 Morphine Sulfate 2 mg Q6HPRN PRN IV 04/22/25 23:00 Ketorolac Tromethamine 15 mg Q8HP PRN IV 04/22/25 23:00 04/27/25 22:59 Pantoprazole Sodium 40 mg DAILY IV 04/23/25 10:00 Exam Vital Signs Vital Signs Date Time Temp Pulse Resp B/P (MAP) Pulse Ox O2 Delivery O2 Flow Rate FiO2 04/22/25 20:38 139/80 04/22/25 15:25 98.3 83 15 97 98.3 General Appearance: Alert, Oriented X3, Cooperative, mild distress HEENT: Atraumatic, PERRLA, EOMI, Other (Dry mucous membranes) Respiratory: Normal air movement Cardiovascular: Regular rate, Normal S1, Normal S2 Abdominal: Normal bowel sounds, Soft, No tenderness Extremities: Other (Left lower extremity immobilized, tender to palpation.) Neuro: Normal speech Psych/Mental Status: Mental status NL, Mood NL Labs/Xrays Labs Test 04/22/25 19:18 04/22/25 18:46 04/22/25 17:28 Range/Units Lactic Acid Level 2.0 0.4-2.0 mmol/L Troponin I High Sensitivity < 3 L </=54 ng/L Urine Color Colorless Yellow Urine Clarity Clear Clear Urine pH 5.5 5.0-9.0 Urine Specific [place] 1.002 1.001-1.035 Urine Protein Negative Negative Urine Ketones Negative Negative Urine Blood Negative Negative /uL Urine Nitrite Negative Negative Urine Bilirubin Negative Negative Urine Urobilinogen Normal Negative mg/dL Urine Leukocyte Esterase Negative Negative /uL Urine RBC None seen 0 - 3 /hpf Urine Microscopic WBC < 1 0-3 /HPF Urine Squamous Epithelial Cells Few <5 /hpf Urine Bacteria None seen None Seen /hpf Urine Glucose 4+ H Normal mg/dL Urine Opiates Screen Neg NEGATIVE Urine Fentanyl Screen Neg NEGATIVE Urine Barbiturates Screen Neg NEGATIVE Urine Phencyclidine Screen Neg NEGATIVE Urine Amphetamines Screen Neg NEGATIVE Urine Benzodiazepines Screen Neg NEGATIVE Urine Cocaine Screen Neg NEGATIVE Urine Cannabinoids Screen Pos NEGATIVE White Blood Count 9.2 # 4.4-10.8 10^3/uL Red Blood Count 5.74 4.5-5.90 10^6/uL Hemoglobin 18.1 H 13.5-17.5 g/dL Hematocrit 51.0 41.0-53.0 % Mean Corpuscular Volume 88.9 80.0-100.0 fL Mean Corpuscular Hemoglobin 31.5 28.0-32.0 pg Mean Corpuscular Hemoglobin Concent 35.4 32.0-36.0 g/dL Red Cell Distribution Width 14.3 11.8-14.3 % Platelet Count 287 140-450 10^3/uL Mean Platelet Volume 7.8 6.9-10.8 fL Neutrophils (%) (Auto) 79.3 37.0-80.0 % Lymphocytes (%) (Auto) 14.6 10.0-50.0 % Monocytes (%) (Auto) 5.2 0.0-12.0 % Eosinophils (%) (Auto) 0.2 0.0-7.0 % Basophils (%) (Auto) 0.7 0.0-2.0 % Neutrophils # (Auto) 7.3 1.6-8.6 10 ^3/uL Lymphocytes # (Auto) 1.3 0.4-5.4 10 ^3/uL Monocytes # (Auto) 0.5 0-1.3 10 ^3/uL Eosinophils # (Auto) 0 0-0.8 10 ^3/uL Basophils # (Auto) 0.1 0-0.2 10 ^3/uL Nucleated Red Blood Cells 0.1 % Sodium Level 133 L 136-145 mmol/L Potassium Level 4.4 3.5-5.1 mmol/L Chloride Level 99 98-107 mmol/L Carbon Dioxide Level 24 20-31 mmol/L Anion Gap 10 5-15 Blood Urea Nitrogen 10 9-23 mg/dL Creatinine 0.76 0.700-1.30 mg/dL Glomerular Filtration Rate Calc 109 >90 mL/min BUN/Creatinine Ratio 13.2 10.0-20.0 Serum Glucose 279 H 74-106 mg/dL Calcium Level 8.8 8.7-10.4 mg/dL Magnesium Level 2.0 1.6-2.6 mg/dL Total Bilirubin 0.6 0.2-1.0 mg/dL Aspartate Amino Transferase (AST) 52 H 13-40 U/L Alanine Aminotransferase (ALT) 42 H 7-40 U/L Alkaline Phosphatase 102 46-116 U/L Creatine Kinase 177 H 46-171 U/L Total Protein 7.8 5.7-8.2 g/dL Albumin 4.3 3.2-4.8 g/dL Plasma/Serum Blood Alcohol 271.9 H <10 mg/dL SEPSIS Sepsis Screen Date sepsis recognized/suspect: Apr 22, 2025 Time Sepsis recognized/suspect: 1524 Recent Procedure: No On Antibiotic Therapy: No Respiratory Rate >20: No Heart Rate >90: No Temp<36 C (96.8 F) or >38.3 C: No SBP <90 or MAP <65 mmHG: No New Acute Mental Status Change: No Is the patient on CPAP, BIPAP,: No Physician Orders Field Director (04/22/25 ) Electrocardigram (04/22/25 16:53) Head Without Contrast (04/22/25 16:53) Cervical Without Contrast (04/22/25 16:53) L Ankle 2 View Xray (04/22/25 16:53) Apply Soft Cervical Collar (04/22/25 16:53) Splints (04/22/25 ) * Orthopedic Consult (04/22/25 19:26) Admit (04/22/25 22:43) Allergies (04/22/25 22:43) Code Status (04/22/25 22:43) Enoxaparin Sodium (Lovenox) (04/23/25 10:00) Complete Blood Count (04/23/25 04:00) Comprehensive Metabolic Panel (04/23/25 04:00) Condition: Unstable (04/22/25 22:43) Notify Of Changes From Base (04/22/25 22:43) Consistent Carb(Ccho)Diabetes (04/23/25 Breakfast) Glucose Blood (Accu-Chek Comfort Curve T (04/23/25 00:00) Insulin R (Human) (Insulin R) (04/23/25 00:00) Dextrose 50% Syringe (04/22/25 22:45) Thiamine Inj (04/23/25 10:00) Folic Acid... (04/23/25 18:00) Folic Acid Tablet (04/23/25 10:00) Chest Portable (04/22/25 22:59) Echo 2d Mode Cardiac Dop (04/22/25 22:59) Acetaminophen Tablet (Tylenol Tablet) (04/22/25 23:00) Hydrocodone-Acet 5/325mg Tab (Moro /32 (04/22/25 23:00) Morphine Sulfate Injection (04/22/25 23:00) Ketorolac Injection (Toradol Injection) (04/22/25 23:00) Pantoprazole (Protonix) (04/23/25 10:00) Vital Signs Date Time Temp Pulse Resp B/P (MAP) Pulse Ox O2 Delivery O2 Flow Rate FiO2 04/22/25 20:38 139/80 Laboratory Tests Test 04/22/25 17:28 04/22/25 19:18 Lactic Acid Level 2.5 mmol/L (0.4-2.0) *H 2.0 mmol/L (0.4-2.0) White Blood Count 9.2 10^3/uL (4.4-10.8) # Medications Medications Dose Ordered Sig/Jaiden Route Start Time Stop Time Status Last Admin Dose Admin Diagnostic Test (Pha) 1 strip IQ4HR 04/23/25 00:00 04/22/25 23:38 1 STRIP Fentanyl Citrate 100 mcg ONCE ONCE IV 04/22/25 20:00 04/22/25 20:02 DC 04/22/25 20:38 100 MCG Folic Acid 1 mg ONCE ONCE PO 04/22/25 23:00 04/22/25 23:10 DC 04/22/25 23:43 1 MG Insulin Human Regular IQ4HR SC 04/23/25 00:00 04/22/25 23:38 6 UNITS Ketorolac Tromethamine 30 mg ONCE ONCE IV 04/22/25 18:45 04/22/25 18:56 DC 04/22/25 19:22 30 MG Sodium Chloride 1,000 ml @ 1,000 mls/hr Q1H ONCE IV 04/22/25 17:00 04/22/25 17:59 DC 04/22/25 19:26 1,000 MLS/HR Sodium Chloride 1,000 ml @ 1,000 mls/hr Q1H ONCE IV 04/22/25 18:15 04/22/25 19:14 DC 04/22/25 19:30 1,000 MLS/HR Thiamine HCl 100 mg ONCE ONCE IV 04/22/25 23:00 04/22/25 23:10 DC 04/22/25 23:43 100 MG Assessment/Plan Assessment/Plan S/p mechanical fall Fracture of the left lateral and medial malleolus/distal fibula Alcohol intoxication with mild withdrawal, CIWA 8-9 Alcohol use disorder - head CT: Unremarkable Ankle x-ray: Fracture of the medial and lateral malleolus/distal fibula. Calcaneal fracture not ruled out. Cervical spine CT: No definitive CT evidence of acute fracture or dislocation of the bony cervical spine CXR: No abnormality demonstrated Orthopedic surgery consulted Acetaminophen for mild pain, Moro 5 for moderate pain, morphine 2 mg for severe pain, ketorolac 15 mg IV Q 8 hours as needed for moderate pain IV thiamine, IV folic acid IV banana bag Counseled patient on harmful effects of alcohol on his overall health and well- being Type 2 diabetes, uncontrolled. HB A1c 10% Moderate sliding scale insulin Mild transaminitis - monitor Chronic Hyponatremia, asymptomatic - monitor PUD prophylaxis: protonix 40mg DVT prophylaxis: Levonox 40mg Goals of care: Full code, discussed for >16 minutes on 04/22/2025 Plan discussed with patient Plan discussed with Dr. 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 (RN) My Orders Orders - CELIA SANTOYO RESIDENT Procedure Category Date Status Time Admit ADMIT 04/22/25 Transmitted 22:43 Allergies JENN 04/22/25 In Process 22:43 Code Status CODE 04/22/25 Transmitted 22:43 Enoxaparin Sodium PHA 04/23/25 In Process (Lovenox) 10:00 Complete Blood Count LAB 04/23/25 Verified 04:00 Comprehensive LAB 04/23/25 Verified Metabolic Panel 04:00 Condition: Unstable JENN 04/22/25 In Process 22:43 Notify Md Of Changes JENN 04/22/25 In Process From Base 22:43 Consistent DIET 04/23/25 Transmitted Carb(Ccho)Diabetes Breakfast Glucose Blood PHA 04/23/25 In Process (Accu-Chek Comfort 00:00 Insulin R (Human) PHA 04/23/25 In Process (Insulin R) 00:00 Dextrose 50% Syringe PHA 04/22/25 In Process 22:45 Thiamine Inj PHA 04/23/25 In Process 10:00 Folic Acid... PHA 04/23/25 In Process 18:00 Folic Acid Tablet PHA 04/23/25 In Process 10:00 Chest Portable XY 04/22/25 Resulted 22:59 Echo 2d Mode Cardiac US 04/22/25 Logged DOP 22:59 Acetaminophen Tablet PHA 04/22/25 In Process (Tylenol Tablet) 23:00 Hydrocodone-Acet PHA 04/22/25 In Process 5/325mg Tab (Moro 23:00 Morphine Sulfate PHA 04/22/25 In Process Injection 23:00 Ketorolac Injection PHA 04/22/25 In Process (Toradol Injection) 23:00 Pantoprazole PHA 04/23/25 In Process (Protonix) 10:00 Date of Service: Apr 22, 2025 Billing Provider: VIJAY SABA MD Common Visit Codes: [id number] INP/OBS CARE (HIGH) Secondary Visit Codes: [id number] CARE PLAN 30 MINUTES CELIA SANTOYO RESIDENT Apr 22, 2025 23:46
[2025-04-23] VITALS (7 sets, daily range): BP systolic 143–163; BP diastolic 86–100; PULSE 64–81; RESP 16–19; TEMP 97.4–98.3; O2SAT 94–100
[2025-04-23] MEDS: MORPHINE SULFATE INJ 2 MG/ml SYRG IV PRN (00:05)
[2025-04-23] MEDS: METOCLOPRAMIDE HCL 5MG/ml INJ 2ml VIAL IV ONE (01:13)
[2025-04-23] MEDS: HYDROcodone-ACET 5/325MG TAB PO PRN (02:12)
--- NOTE | 2025-04-23 02:34 | ECG ---
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
[2025-04-23] MEDS: KETOROLAC TROMETH 30 MG/ML 1ML VIAL IV PRN (03:14)
[2025-04-23] MEDS ORDERED: TRAM50TA2 PO (04:57)
[2025-04-23] MEDS ORDERED: TIZA-142 PO (04:57)
[2025-04-23] MEDS: PANTOPRAZOLE 40 MG/10 ML VIAL INJ IV SCH (09:03)
[2025-04-23] MEDS: ENOXAPARIN SOD 40 MG/0.4 ML SYRINGE SC SCH (09:04)
[2025-04-23] MEDS: THIAMINE 100mg/ml INJ (200mg/2ml VIAL) IV SCH (09:04)
[2025-04-23] MEDS: FOLIC ACID 1 MG TAB PO SCH (09:04)
[2025-04-23 11:35] LABS: Hematocrit 49.0 % (41.0-53.0); Hemoglobin 17.1 g/dL (13.5-17.5); Mean Corpuscular Hemoglobin 31.2 pg (28.0-32.0); Mean Corpuscular Volume 89.2 fL (80.0-100.0); Nucleated Red Blood Cells % 0.0 %
[2025-04-23 11:55] LABS: Albumin 4.1 g/dL (3.2-4.8); Alkaline Phosphatase 98 U/L (46-116); Anion Gap 8 (5-15); BUN/Creatinine Ratio 9.9 (10.0-20.0); Bilirubin, Total 0.9 mg/dL (0.2-1.0); Calcium 8.8 mg/dL (8.7-10.4); Carbon Dioxide 27 mmol/L (20-31); Chloride 99 mmol/L (98-107); Potassium 3.9 mmol/L (3.5-5.1); Total Protein 7.4 g/dL (5.7-8.2)
[2025-04-23 11:57] LABS: Alanine Aminotransferase 43 U/L (7-40); Blood Urea Nitrogen 7 mg/dL (9-23); Glucose 221 mg/dL (74-106); Sodium 134 mmol/L (136-145)
--- NOTE | 2025-04-23 14:49 | DVHPN2 ---
Subjective Patient doing well, continues to have pain in the left ankle. Reviewed: H&P Changes from previous H/P or p: No Changes General: Per HPI Eyes: No Pain, No Vision change, No Conjunctivae inflammation, No Eyelid inflammation, No Other, No Redness ENT: No Ear pain, No Ear discharge, No Nose pain, No Nose discharge, No Nose congestion, No Mouth pain, No Mouth swelling, No Throat pain, No Throat swelling, No Other Cardiovascular: No Chest Pain, No Palpitations, No Orthopnea, No Paroxysmal Noc. Dyspnea, No Edema, No Lt Headedness, No Other Respiratory: No Cough, No Dry, No Shortness of breath; SOB with excertion; No Wheezing, No Hemoptysis, No Pleuritic Pain, No Sputum, No Other Gastrointestinal: Nausea, Vomiting; No Abdominal Pain, No Diarrhea, No Constipation, No Melena, No Hematochezia, No Other Genitourinary: No Dysuria, No Frequency, No Incontinence, No Hematuria, No Retention, No Other Musculoskeletal: No other, No neck pain, No shoulder pain, No arm pain, No back pain, No hand pain; leg pain, foot pain Skin: No Rash, No Lesions, No Jaundice, No Bruising, No Other Objective Vitals Vital Signs Date Time Temp Pulse Resp B/P (MAP) Pulse Ox O2 Delivery O2 Flow Rate FiO2 04/23/25 13:00 97.9 68 19 162/95 (117) 98 97.9 04/23/25 08:05 Room Air* 0 21 Intake/Output Intake and Output 04/23/25 07:00 Intake Total 2100 ml Balance 2100 ml Intake Oral 100 ml IV Total 2000 ml # Voids 1 # Bowel Movements 1 Exam GEN: Healthy appearing, well-developed, NAD. HEENT: NC/AT; MMM. CV: RRR, no m/r/g. LUNGS: CTAB, no w/r/c. ABD: Soft, NT/ND, NBS, no masses or organomegaly. EXT: skin Warm, well perfused. no rashes. No clubbing, cyanosis, or edema. Left ankle decreased range motion with pain NEURO: Ambulating with no limitations. No focal deficits. Medications Current Medications Medications Dose Ordered Sig/Jaiden Route Start Time Stop Time Status Last Admin Dose Admin Enoxaparin Sodium 40 mg DAILY SC 04/23/25 10:00 04/23/25 09:04 40 MG Diagnostic Test (Pha) 1 strip IQ4HR 04/23/25 00:00 04/23/25 11:55 1 STRIP Insulin Human Regular IQ4HR SC 04/23/25 00:00 04/23/25 11:55 6 UNITS Dextrose 50 ml UD PRN IV 04/22/25 22:45 Thiamine HCl 100 mg DAILY IV 04/23/25 10:00 04/23/25 09:04 100 MG Folic Acid 1 mg/ Magnesium Sulfate 8 meq/ Multivitamins 10 ml/Thiamine HCl 100 mg/Sodium Chloride 1,013.2 ml @ 126.247 mls/hr DAILY@1800 INJ 04/23/25 18:00 Folic Acid 1 mg DAILY PO 04/23/25 10:00 04/23/25 09:04 1 MG Acetaminophen 650 mg Q4HP PRN PO 04/22/25 23:00 Acetaminophen/ Hydrocodone Bitart 1 tab Q6HPRN PRN PO 04/22/25 23:00 04/23/25 11:35 1 TAB Morphine Sulfate 2 mg Q6HPRN PRN IV 04/22/25 23:00 04/23/25 07:40 2 MG Ketorolac Tromethamine 15 mg Q8HP PRN IV 04/22/25 23:00 04/27/25 22:59 04/23/25 03:14 15 MG Pantoprazole Sodium 40 mg DAILY IV 04/23/25 10:00 04/23/25 09:03 40 MG Ondansetron HCl 4 mg Q6HPRN PRN IV 04/23/25 06:00 Laboratory Results Laboratory Tests 04/23/25 10:38 Chemistry Test 04/22/25 17:28 04/23/25 10:38 Albumin 4.3 g/dL (3.2-4.8) 4.1 g/dL (3.2-4.8) Calcium Level 8.8 mg/dL (8.7-10.4) 8.8 mg/dL (8.7-10.4) Magnesium Level 2.0 mg/dL (1.6-2.6) Total Protein 7.8 g/dL (5.7-8.2) 7.4 g/dL (5.7-8.2) LFT Test 04/22/25 17:28 04/23/25 10:38 Alanine Aminotransferase (ALT) 42 U/L (7-40) H 43 U/L (7-40) H Alkaline Phosphatase 102 U/L (46-116) 98 U/L (46-116) Aspartate Amino Transferase (AST) 52 U/L (13-40) H 58 U/L (13-40) H Total Bilirubin 0.6 mg/dL (0.2-1.0) 0.9 mg/dL (0.2-1.0) Urinalysis Test 04/22/25 18:46 Urine Color Colorless (Yellow) Urine Clarity Clear (Clear) Urine pH 5.5 (5.0-9.0) Urine Specific [place] 1.002 (1.001-1.035) Urine Protein Negative (Negative) Urine Ketones Negative (Negative) Urine Blood Negative /uL (Negative) Urine Nitrite Negative (Negative) Urine Bilirubin Negative (Negative) Urine Urobilinogen Normal mg/dL (Negative) Urine Leukocyte Esterase Negative /uL (Negative) Urine RBC None seen /hpf (0 - 3) Urine Microscopic WBC < 1 /HPF (0-3) Urine Squamous Epithelial Cells Few /hpf (<5) Urine Bacteria None seen /hpf (None Seen) Urine Glucose 4+ mg/dL (Normal) H Labs and/or images reviewed: Labs reviewed by me, Image(s) reviewed by me Assessment/Plan Assessment/Plan Patient is a 50-year-old male with past medical history of type 2 diabetes, who comes in after sustaining a mechanical fall. Patient notes he had multiple drinks of alcohol this morning after which he sustained a fall details of which he does not remember. Patient notes he woke up on the floor and could not move he dragged himself to his bed where he used his phone to called 911. Patient endorses heavy history of alcohol use with 6 pack every day for the last 15-20 years. Ankle x-ray showed fracture of the medial and lateral malleolus with calcaneal fracture not excluded. Patient was also noted to be in mild alcohol withdrawal with CIWA score 8-9. 04/23:. Patient doing well left ankle bandaged. He also had before this incident left flank pain no CVA tenderness. We will do renal ultrasound and patient might need left ribs x-ray tomorrow if no cause found. Otherwise waiting for Orthopedics to evaluate patient. Pain control PRN. Keep on regular diet. Waiting for ortho eval to determine when to make NPO. Diagnosis : S/p mechanical fall Fracture of the left lateral and medial malleolus/distal fibula Alcohol intoxication with mild withdrawal, CIWA 8-9 Alcohol use disorder Type 2 diabetes, uncontrolled. HB A1c 10% Mild transaminitis Chronic Hyponatremia, asymptomatic Plan: Immobilize left lower extremity, nonweightbearing on left lower extremity until orthopedic evaluation Plan of bag CIWA protocol Folic acid 1 mg daily Pain control PRN Moderate sliding scale insulin q.4 changed to q.6 Zofran p.r.n. for antiemetic Protonix IV Thiamine injection 1000 IV daily 5 days Med surge Full code Plan discussed with: Patient, Spouse My Orders Orders - SOFIE PAZ MD Procedure Category Date Status Time Kidney US 04/23/25 Verified 14:40 Date of Service: Apr 23, 2025 Billing Provider: SOFIE PAZ MD Common Visit Codes: [id number] INP/OBS CARE(HIGH) SOFIE PAZ MD Apr 23, 2025 14:49
--- NOTE | 2025-04-23 15:28 | DVH ---
INDICATION: check hydronephrosis left TECHNIQUE: Multiple real-time sonographic images of the kidneys and bladder were obtained. COMPARISON: None FINDINGS: RIGHT kidney measures 11.6 cm in length. No hydronephrosis. LEFT kidney measures 12.4 cm in length. No hydronephrosis. No large intraluminal masses are seen in the bladder. IMPRESSION: 1. No hydronephrosis
--- NOTE | 2025-04-23 15:58 | DVHSR ---
APPROVED REPORT EXAM: Two-dimensional and M-mode echocardiogram with Doppler and color Doppler. Blood Pressure: 158/93 mmHg INDICATION SOB RISK FACTORS Obesity: Height: 5'8", Weight: 269 DIMENSIONS LVDd4.7 (3.8-5.7cm)LA (2D)3.9 (1.9-4.0cm)Aortic Root3.5 (2.0-3.7cm) LVDs3.3 (2.5-4.0cm)LA (MM) (1.9-4.0cm)Aortic Cusp Exc1.7 (1.5-2.0cm) EF (%) 50.0 (55-70%)Rt. Atrium3.6 (1.9-4.0cm)Asc. Aorta cm IVSd1.0 (0.7-1.1cm)RV (D) (1.8-2.4cm) PWd1.3 (0.7-1.1cm) Mitral Valve MitralMitral Stenosis E wave0.97m/sMV Mean GR.mmHg A wave0.98m/sMV Peak GR.mmHg E/A ratio1.02D MVAcm2 DECEL [id number] 1/2 Timems Aortic Valve Aortic ValveAortic Stenosis V11.23m/Johnny Mean GR.6mmHg V21.71m/Johnny Peak GR.12mmHg LVOT Diameter2.1 (1.8-2.4cm)Doppler AVA2.49cm2 Other Information Technically limited study due to body habitus. Conclusion Technically difficult study. Difficult acoustic windows. Concentric LVH. Valves are normal. EF of 50% with normal RV function. Mild TR. No pericardial effusion masses or vegetations discernible.
[2025-04-23] MEDS: ONDANSETRON HCL 4 MG/2 ML VIAL IV PRN (16:00)
[2025-04-23] MEDS: FOLIC ACID 1 MG, MAGNESIUM SULF SDV 50% 8 MEQ, MULTIPLE VITAMIN 10 ML, THIAMINE INJ 100... INJ SCH (17:48)
[2025-04-24] VITALS (9 sets, daily range): BP systolic 129–180; BP diastolic 67–110; PULSE 66–86; RESP 13–20; TEMP 97.7–98.2; O2SAT 93–97
[2025-04-24 08:00] LABS: Alanine Aminotransferase 31 U/L (7-40); Albumin 3.6 g/dL (3.2-4.8); Alkaline Phosphatase 89 U/L (46-116); Anion Gap 8 (5-15); BUN/Creatinine Ratio 6.0 (10.0-20.0); Carbon Dioxide 30 mmol/L (20-31); Potassium 3.6 mmol/L (3.5-5.1); Total Protein 7.0 g/dL (5.7-8.2)
[2025-04-24 08:06] LABS: Bilirubin, Total 1.4 mg/dL (0.2-1.0); Blood Urea Nitrogen 5 mg/dL (9-23); Calcium 8.5 mg/dL (8.7-10.4); Chloride 97 mmol/L (98-107); Glucose 163 mg/dL (74-106); Sodium 135 mmol/L (136-145)
--- NOTE | 2025-04-24 10:53 | DVHPN2 ---
Subjective Patient doing well, continues to have pain in the left ankle. Reviewed: H&P Changes from previous H/P or p: No Changes General: Per HPI Eyes: No Pain, No Vision change, No Conjunctivae inflammation, No Eyelid inflammation, No Other, No Redness ENT: No Ear pain, No Ear discharge, No Nose pain, No Nose discharge, No Nose congestion, No Mouth pain, No Mouth swelling, No Throat pain, No Throat swelling, No Other Cardiovascular: No Chest Pain, No Palpitations, No Orthopnea, No Paroxysmal Noc. Dyspnea, No Edema, No Lt Headedness, No Other Respiratory: No Cough, No Dry, No Shortness of breath; SOB with excertion; No Wheezing, No Hemoptysis, No Pleuritic Pain, No Sputum, No Other Gastrointestinal: Nausea, Vomiting; No Abdominal Pain, No Diarrhea, No Constipation, No Melena, No Hematochezia, No Other Genitourinary: No Dysuria, No Frequency, No Incontinence, No Hematuria, No Retention, No Other Musculoskeletal: No other, No neck pain, No shoulder pain, No arm pain, No back pain, No hand pain; leg pain, foot pain Skin: No Rash, No Lesions, No Jaundice, No Bruising, No Other Objective Vitals Vital Signs Date Time Temp Pulse Resp B/P (MAP) Pulse Ox O2 Delivery O2 Flow Rate FiO2 04/24/25 09:00 97.9 66 18 167/99 (121) 93 97.9 04/24/25 08:06 Room Air* 0 21 Intake/Output Intake and Output 04/24/25 07:00 Intake Total 1540 ml Output Total 3780 ml Balance -2240 ml Intake Oral 1540 ml Output Urine Total 3780 ml Exam GEN: Healthy appearing, well-developed, NAD. HEENT: NC/AT; MMM. CV: RRR, no m/r/g. LUNGS: CTAB, no w/r/c. ABD: Soft, NT/ND, NBS, no masses or organomegaly. EXT: skin Warm, well perfused. no rashes. No clubbing, cyanosis, or edema. Left ankle decreased range motion with pain NEURO: Ambulating with no limitations. No focal deficits. Medications Current Medications Medications Dose Ordered Sig/Jaiden Route Start Time Stop Time Status Last Admin Dose Admin Enoxaparin Sodium 40 mg DAILY SC 04/23/25 10:00 04/24/25 08:38 40 MG Diagnostic Test (Pha) 1 strip IQ4HR 04/23/25 00:00 04/24/25 08:00 1 STRIP Insulin Human Regular IQ4HR SC 04/23/25 00:00 04/24/25 09:01 6 UNITS Dextrose 50 ml UD PRN IV 04/22/25 22:45 Thiamine HCl 100 mg DAILY IV 04/23/25 10:00 04/24/25 08:38 100 MG Folic Acid 1 mg/ Magnesium Sulfate 8 meq/ Multivitamins 10 ml/Thiamine HCl 100 mg/Sodium Chloride 1,013.2 ml @ 126.247 mls/hr DAILY@1800 INJ 04/23/25 18:00 04/23/25 17:48 126.247 MLS/HR Folic Acid 1 mg DAILY PO 04/23/25 10:00 04/24/25 08:38 1 MG Acetaminophen 650 mg Q4HP PRN PO 04/22/25 23:00 Acetaminophen/ Hydrocodone Bitart 1 tab Q6HPRN PRN PO 04/22/25 23:00 04/24/25 08:59 1 TAB Morphine Sulfate 2 mg Q6HPRN PRN IV 04/22/25 23:00 04/24/25 05:50 2 MG Ketorolac Tromethamine 15 mg Q8HP PRN IV 04/22/25 23:00 04/27/25 22:59 04/24/25 01:55 15 MG Pantoprazole Sodium 40 mg DAILY IV 04/23/25 10:00 04/24/25 08:38 40 MG Ondansetron HCl 4 mg Q6HPRN PRN IV 04/23/25 06:00 04/24/25 05:49 4 MG Laboratory Results Laboratory Tests 04/23/25 10:38 04/24/25 06:29 Chemistry Test 04/24/25 06:29 Albumin 3.6 g/dL (3.2-4.8) Calcium Level 8.5 mg/dL (8.7-10.4) L Total Protein 7.0 g/dL (5.7-8.2) LFT Test 04/24/25 06:29 Alanine Aminotransferase (ALT) 31 U/L (7-40) Alkaline Phosphatase 89 U/L (46-116) Aspartate Amino Transferase (AST) 39 U/L (13-40) Total Bilirubin 1.4 mg/dL (0.2-1.0) H Urinalysis Test 04/22/25 18:46 Urine Color Colorless (Yellow) Urine Clarity Clear (Clear) Urine pH 5.5 (5.0-9.0) Urine Specific [place] 1.002 (1.001-1.035) Urine Protein Negative (Negative) Urine Ketones Negative (Negative) Urine Blood Negative /uL (Negative) Urine Nitrite Negative (Negative) Urine Bilirubin Negative (Negative) Urine Urobilinogen Normal mg/dL (Negative) Urine Leukocyte Esterase Negative /uL (Negative) Urine RBC None seen /hpf (0 - 3) Urine Microscopic WBC < 1 /HPF (0-3) Urine Squamous Epithelial Cells Few /hpf (<5) Urine Bacteria None seen /hpf (None Seen) Urine Glucose 4+ mg/dL (Normal) H Assessment/Plan Assessment/Plan Patient is a 50-year-old male with past medical history of type 2 diabetes, who comes in after sustaining a mechanical fall. Patient notes he had multiple drinks of alcohol this morning after which he sustained a fall details of which he does not remember. Patient notes he woke up on the floor and could not move he dragged himself to his bed where he used his phone to called 911. Patient endorses heavy history of alcohol use with 6 pack every day for the last 15-20 years. Ankle x-ray showed fracture of the medial and lateral malleolus with calcaneal fracture not excluded. Patient was also noted to be in mild alcohol withdrawal with CIWA score 8-9. 04/23:. Patient doing well left ankle bandaged. He also had before this incident left flank pain no CVA tenderness. We will do renal ultrasound and patient might need left ribs x-ray tomorrow if no cause found. Otherwise waiting for Orthopedics to evaluate patient. Pain control PRN. Keep on regular diet. Waiting for ortho eval to determine when to make NPO. 04/24: No eval from ortho, RN we will follow up. We will get left rib x-ray, we will start baclofen 10 b.i.d.. Otherwise continue plan to follow up. Patient was taken to OR today with ortho. Diagnosis : S/p mechanical fall Fracture of the left lateral and medial malleolus/distal fibula Alcohol intoxication with mild withdrawal, CIWA 8-9 Alcohol use disorder Type 2 diabetes, uncontrolled. HB A1c 10% Mild transaminitis Chronic Hyponatremia, asymptomatic Plan: Immobilize left lower extremity, nonweightbearing on left lower extremity until orthopedic evaluation Plan of bag CIWA protocol Folic acid 1 mg daily Pain control PRN Moderate sliding scale insulin q.4 changed to q.6 Zofran p.r.n. for antiemetic Protonix IV Thiamine injection 1000 IV daily 5 days RCRI 0, mets>4, no pulm history w normal exam. cleared for surgery. Med surge Full code Plan discussed with: Patient My Orders Orders - SOFIE PAZ MD Procedure Category Date Status Time Kidney US 04/23/25 Resulted 14:40 Date of Service: Apr 24, 2025 Billing Provider: SOFIE PAZ MD Common Visit Codes: [id number] INP/OBS CARE(HIGH) SOFIE PAZ MD Apr 24, 2025 10:53
--- NOTE | 2025-04-24 13:12 | DVH ---
EXAMINATION: XY L RIB X RAY INDICATION: lateral flank pain r/o fracture COMPARISON: XY CHEST PORTABLE on DOS: 04/22/25, CHEST XRAY 1 VIEW on DOS: 09/02/21 TECHNIQUE: Frontal view of the chest and 3 views of the left ribs history FINDINGS: No focal consolidation, pleural effusion or significant pneumothorax. Normal cardiomediastinal silhou ette. No displaced left rib fracture. IMPRESSION: No acute cardiopulmonary disease. No displaced left rib fracture.
--- NOTE | 2025-04-24 15:38 | DVHHP2 ---
History Allergies: Coded Allergies: NO KNOWN ALLERGIES (Unverified , 11/11/23) Chief Complaint: 50M, laft ankle pain, inability to bear weight Present Illness(Onset/Duration 50M, alcohol abuse, fall Sat night, two days ago, acute onset left ankle pain, inabilty to bear weight admitted for medical clearance and ORIF Dr Akbar has cleared him for surgery after; evaluation, labs and echo Past Surgical History non contributory Medications see internal H and P Physical Exam Skin intact EENT NCAT Chest and Lungs CTA B Heart RRR neg MRG Abdomen NBS ND NT Extremities Left ankle, mild swelling, NVI, skin intact Vital Signs Vital Signs Date Time Temp Pulse Resp B/P (MAP) Pulse Ox O2 Delivery O2 Flow Rate FiO2 04/24/25 13:00 98.0 67 18 156/91 (112) 97 98.0 04/24/25 08:06 Room Air* 0 21 Impressions/Description 50M, poorly contrilled DM, alcoholic, obese, left ankle bimalleolar fracture Plan ORIF left ankle bimalleolar fracture MARK ISLAS MD Apr 24, 2025 15:38
[2025-04-24] MEDS ORDERED: fentaNYL CITRATE 100 MCG/2 ML VL ONE (16:10)
[2025-04-24] MEDS ORDERED: MIDAZOLAM HCL 2MG/2ML 2ml VIAL (1mg/ml) ONE (16:11)
[2025-04-24] MEDS ORDERED: LIDOCAINE 2% (LOCAL ANESTH.) PF 5ml SDV ONE (16:17)
[2025-04-24] MEDS ORDERED: PROPOFOL 10 MG/ML 20 ML IV ONE (16:17)
[2025-04-24] MEDS ORDERED: ONDANSETRON HCL 4 MG/2 ML VIAL ONE (16:17)
--- NOTE | 2025-04-24 17:09 | DVHOP2 ---
Operative Report - 2 Report Details Date: 04/24/25 Preop Diagnosis: Left ankle bimalleolar fracture Postop Diagnosis: same Surgeon: Mark Islas MD Supervisor Backfilling: none Anesthesiologist: Dr Jones Anesthesia: General Drains: none Implant: Dom medial screws, lateral fibular plate Consent: The patient was informed of the risks and benefits of the procedure. These include but are not limited to complications of anesthesia, postoperative infection, incomplete relief of symptoms, recurrence of symptoms, damage to bloo d vessels, nerves and tendons, deep venous thrombosis, pulmonary embolism and possible need for repeat surgery in the future. Complications: none Estimated Blood Loss: 20 cc Fluids: 1 L crystalloid Findings: above, syndesmosis intact Indications for Surgery: unstable fracture pattern with high risk of non-union , mal union Name of Procedure Performed ORIF left ankle bimalleolar fracture Procedure Details Procedure Details: Patient brought to the operating room general anesthesia supine position received 2 g Ancef IV piggyback preoperatively a nonsterile tourniquet on left proximal thigh sterile prep and drape left lower leg time-out performed confirmation left side correct site or extra by malleolar ankle fracture correct procedure after review of the operative consent history and physical my initials and left ankle exsanguination with the Esmarch tourniquet elevated to 300 mm of mercury total tourniquet time 10 minutes longitudinal incision made over the medial malleolus sharp dissection through the skin down to subcutaneous tissue blunt dissection down to the fascia fracture then levered open irrigation of joint there seemed to be deltoid ligament flipped into the fracture site this is removed and fracture reduced by making a hole in the proximal side of the fracture for the clamp then the clamp on the distal aspect of the medial malleolus reducing the fracture anatomically placing two guidewires for cannulated screws then placed into cannulated screws C-arm fluoro showing an atomic alignment of fracture and good placement of hardware then internal rotation of leg longitudinal incision over lateral malleolus sharp dissection through skin down to subcutaneous tissue blunt dissection down to the fascia and retracting sural nerve posteriorly subperiosteal elevation and curettage and irrigation fracture site inner frag screw placed across the fracture and then a lateral fibular plate five locking we unicortical screws distally and four cortical bicortical screws proximally C-arm fluoro taken showing anatomic alignment of fracture and good hardware placement traction performed on lateral fibula to assess syndesmosis syndesmosis seemed to be intact and therefore no need for syndesmosis fixation tracheal down excellent hemostasis noted irrigation with normal saline closed with subcutaneous 2-0 Vicryl skin sandra fluffs ABD loose [place] wrap walker boot patient is to be strict nonweightbearing six weeks given his overall size and obesity follow up in orthopedic office in two weeks after discharge Specimen: none Condition Stable Disposition Still a Patient MARK ISLAS MD Apr 24, 2025 17:09
[2025-04-24] MEDS ORDERED: NITROGLYCERIN 0.4 MG SL TAB SL PRN (17:15)
[2025-04-24] MEDS ORDERED: NEOSTIGMINE 1 MG/ML INJ (10mg/10ML VIAL) ONE (17:17)
[2025-04-24] MEDS ORDERED: GLYCOPYRROLATE 0.2 MG/ML 1ML VIAL ONE (17:17)
[2025-04-24] MEDS ORDERED: HYDROmorphone HCL 2 MG/ML VL/or syr IV PRN (17:30)
[2025-04-24] MEDS: HYDROmorphone HCL 2 MG/ML VL/or syr IV ONE (17:30)
[2025-04-24] MEDS: HYDROmorphone HCL 2 MG/ML VL/or syr IV PRN (17:30)
[2025-04-24] MEDS ORDERED: ONDANSETRON HCL 4 MG/2 ML VIAL IV PRN (17:30)
[2025-04-24] MEDS: HYDROmorphone HCL 2 MG/ML VL/or syr ONE (17:32)
[2025-04-24] MEDS: MULTIPLE VITAMIN TAB PO ONE (18:00)
[2025-04-24] MEDS: MAGNESIUM OXIDE 400 MG TAB PO ONE (18:00)
[2025-04-24] MEDS: ceFAZolin 1GM/50ML 50 ML IV ONE (18:09)
[2025-04-24] MEDS: BACLOFEN 10 MG TAB PO SCH (21:58)
[2025-04-24] MEDS: ceFAZolin 1GM/50ML 50 ML IV SCH (21:59)
--- NOTE | 2025-04-25 00:47 | DVH ---
CLINICAL INDICATION: ORIF LEFT ANKLE TECHNIQUE: XY L ANKLE 3 VIEW Comparison: XY L ANKLE 2 VIEW XRAY on DOS: 04/22/25, XY R FOOT 3 VIEW XRAY on DOS: 11/11/23 FINDINGS/IMPRESSION: : Hardware within the distal fibula and medial malleolus without evidence of complication. There is no evidence of acute fracture or dislocation. Soft tissues are unremarkable.
[2025-04-25 01:12] VITALS: BP 115/77; PULSE 79; RESP 16; TEMP 98.2; O2SAT 96
[2025-04-25] MEDS: MORPHINE SULFATE INJ 2 MG/ml SYRG IV PRN ×2 (03:00→14:45)
[2025-04-25 04:32] VITALS: BP 116/53; PULSE 83; RESP 18; TEMP 98.2; O2SAT 96
--- NOTE | 2025-04-25 04:59 | DVH ---
C-ARM FLUOROSCOPY: PROCEDURE: Left ankle ORIF FLUOROSCOPY TIME: 7.2 seconds DAP: 0.11 mgy FINDINGS: Spot intraoperative C arm radiographs demonstrating left ankle ORIF. IMPRESSION: Please refer to surgical report for detailed findings.
[2025-04-25 06:23] LABS: Hematocrit 46.8 % (41.0-53.0); Hemoglobin 16.3 g/dL (13.5-17.5); Mean Corpuscular Hemoglobin 31.5 pg (28.0-32.0); Mean Corpuscular Volume 90.2 fL (80.0-100.0); Nucleated Red Blood Cells % 0.1 %
[2025-04-25 06:36] LABS: Alanine Aminotransferase 27 U/L (7-40); Albumin 3.9 g/dL (3.2-4.8); Alkaline Phosphatase 82 U/L (46-116); Anion Gap 9 (5-15); Carbon Dioxide 27 mmol/L (20-31); Potassium 3.7 mmol/L (3.5-5.1); Total Protein 7.2 g/dL (5.7-8.2)
[2025-04-25 06:39] LABS: BUN/Creatinine Ratio 7.7 (10.0-20.0); Bilirubin, Total 1.4 mg/dL (0.2-1.0); Blood Urea Nitrogen < 5 mg/dL (9-23); Calcium 8.6 mg/dL (8.7-10.4); Chloride 95 mmol/L (98-107); Glucose 157 mg/dL (74-106); Sodium 131 mmol/L (136-145)
[2025-04-25] MEDS: MAGNESIUM OXIDE 400 MG TAB PO SCH (08:25)
[2025-04-25] MEDS: MULTIPLE VITAMIN TAB PO SCH (08:25)
[2025-04-25] MEDS: THIAMINE 100mg/ml INJ (200mg/2ml VIAL) IV SCH (08:26)
[2025-04-25 08:30] VITALS: BP_SYST 129; BP_SYST 149; BP_DIAS 67; BP_DIAS 84; PULSE 76; RESP 18; TEMP 98.3; O2SAT 97; O2SAT 98
[2025-04-25 12:30] VITALS: BP 142/94; PULSE 81; RESP 16; TEMP 98.8; O2SAT 96
--- NOTE | 2025-04-25 15:10 | DVHPN2 ---
Subjective Patient doing well, continues to have pain in the left ankle. Reviewed: H&P Changes from previous H/P or p: No Changes General: Per HPI Eyes: No Pain, No Vision change, No Conjunctivae inflammation, No Eyelid inflammation, No Other, No Redness ENT: No Ear pain, No Ear discharge, No Nose pain, No Nose discharge, No Nose congestion, No Mouth pain, No Mouth swelling, No Throat pain, No Throat swelling, No Other Cardiovascular: No Chest Pain, No Palpitations, No Orthopnea, No Paroxysmal Noc. Dyspnea, No Edema, No Lt Headedness, No Other Respiratory: No Cough, No Dry, No Shortness of breath; SOB with excertion; No Wheezing, No Hemoptysis, No Pleuritic Pain, No Sputum, No Other Gastrointestinal: Nausea, Vomiting; No Abdominal Pain, No Diarrhea, No Constipation, No Melena, No Hematochezia, No Other Genitourinary: No Dysuria, No Frequency, No Incontinence, No Hematuria, No Retention, No Other Musculoskeletal: No other, No neck pain, No shoulder pain, No arm pain, No back pain, No hand pain; leg pain, foot pain Skin: No Rash, No Lesions, No Jaundice, No Bruising, No Other Objective Vitals Vital Signs Date Time Temp Pulse Resp B/P (MAP) Pulse Ox O2 Delivery O2 Flow Rate FiO2 04/25/25 14:45 81 16 142/94 04/25/25 12:30 98.8 96 98.8 04/25/25 08:05 Room Air* 0 21 Intake/Output Intake and Output 04/25/25 07:00 Intake Total 1400 ml Output Total 1450 ml Balance -50 ml Intake Oral 1300 ml IV Total 100 ml Output Urine Total 1450 ml # Voids 4 # Bowel Movements 1 Exam GEN: Healthy appearing, well-developed, NAD. HEENT: NC/AT; MMM. CV: RRR, no m/r/g. LUNGS: CTAB, no w/r/c. ABD: Soft, NT/ND, NBS, no masses or organomegaly. EXT: skin Warm, well perfused. no rashes. No clubbing, cyanosis, or edema. Left ankle decreased range motion with pain NEURO: Ambulating with no limitations. No focal deficits. Medications Current Medications Medications Dose Ordered Sig/Jaiden Route Start Time Stop Time Status Last Admin Dose Admin Enoxaparin Sodium 40 mg DAILY SC 04/23/25 10:00 04/25/25 08:30 40 MG Diagnostic Test (Pha) 1 strip IQ4HR 04/23/25 00:00 04/25/25 12:00 1 STRIP Insulin Human Regular IQ4HR SC 04/23/25 00:00 04/25/25 13:26 3 UNITS Dextrose 50 ml UD PRN IV 04/22/25 22:45 Folic Acid 1 mg DAILY PO 04/23/25 10:00 04/25/25 08:25 1 MG Acetaminophen 650 mg Q4HP PRN PO 04/22/25 23:00 Ketorolac Tromethamine 15 mg Q8HP PRN IV 04/22/25 23:00 04/27/25 22:59 04/25/25 13:19 15 MG Pantoprazole Sodium 40 mg DAILY IV 04/23/25 10:00 04/25/25 08:26 40 MG Ondansetron HCl 4 mg Q6HPRN PRN IV 04/23/25 06:00 04/25/25 10:06 4 MG Baclofen 10 mg BID PO 04/24/25 22:00 04/25/25 08:26 10 MG Multivitamins 1 tab DAILY PO 04/25/25 10:00 04/25/25 08:25 1 TAB Magnesium Oxide 400 mg DAILY PO 04/25/25 10:00 04/25/25 08:25 400 MG Thiamine HCl 100 mg DAILY PO 04/28/25 10:00 Thiamine HCl 100 mg DAILY IV 04/25/25 10:00 04/27/25 10:01 04/25/25 08:26 100 MG Nitroglycerin 0.4 mg Q5MINP PRN SL 04/24/25 17:15 Morphine Sulfate 2 mg Q4HPRN PRN IV 04/25/25 14:10 04/25/25 14:45 2 MG Acetaminophen/ Hydrocodone Bitart 1 tab Q4HP PRN PO 04/25/25 13:45 Laboratory Results Laboratory Tests 04/25/25 05:30 Chemistry Test 04/25/25 05:30 Albumin 3.9 g/dL (3.2-4.8) Calcium Level 8.6 mg/dL (8.7-10.4) L Total Protein 7.2 g/dL (5.7-8.2) LFT Test 04/25/25 05:30 Alanine Aminotransferase (ALT) 27 U/L (7-40) Alkaline Phosphatase 82 U/L (46-116) Aspartate Amino Transferase (AST) 39 U/L (13-40) Total Bilirubin 1.4 mg/dL (0.2-1.0) H Urinalysis Test 04/22/25 18:46 Urine Color Colorless (Yellow) Urine Clarity Clear (Clear) Urine pH 5.5 (5.0-9.0) Urine Specific [place] 1.002 (1.001-1.035) Urine Protein Negative (Negative) Urine Ketones Negative (Negative) Urine Blood Negative /uL (Negative) Urine Nitrite Negative (Negative) Urine Bilirubin Negative (Negative) Urine Urobilinogen Normal mg/dL (Negative) Urine Leukocyte Esterase Negative /uL (Negative) Urine RBC None seen /hpf (0 - 3) Urine Microscopic WBC < 1 /HPF (0-3) Urine Squamous Epithelial Cells Few /hpf (<5) Urine Bacteria None seen /hpf (None Seen) Urine Glucose 4+ mg/dL (Normal) H Labs and/or images reviewed: Labs reviewed by me, Image(s) reviewed by me Assessment/Plan Assessment/Plan Patient is a 50-year-old male with past medical history of type 2 diabetes, who comes in after sustaining a mechanical fall. Patient notes he had multiple drinks of alcohol this morning after which he sustained a fall details of which he does not remember. Patient notes he woke up on the floor and could not move he dragged himself to his bed where he used his phone to called 911. Patient endorses heavy history of alcohol use with 6 pack every day for the last 15-20 years. Ankle x-ray showed fracture of the medial and lateral malleolus with calcaneal fracture not excluded. Patient was also noted to be in mild alcohol withdrawal with CIWA score 8-9. 04/23:. Patient doing well left ankle bandaged. He also had before this incident left flank pain no CVA tenderness. We will do renal ultrasound and patient might need left ribs x-ray tomorrow if no cause found. Otherwise waiting for Orthopedics to evaluate patient. Pain control PRN. Keep on regular diet. Waiting for ortho eval to determine when to make NPO. 04/24: No eval from ortho RN we will follow up. We will get left rib x-ray, we will start baclofen 10 b.i.d.. Otherwise continue plan to follow up. Patient was taken to OR today with ortho. 04/25: PT eval today, strict nonweightbearing left lower extremity. Postop day 1, optimizing pain control prn today. Diagnosis : S/p mechanical fall Fracture of the left lateral and medial malleolus/distal fibula Alcohol intoxication with mild withdrawal, CIWA 8-9 Alcohol use disorder Type 2 diabetes, uncontrolled. HB A1c 10% Mild transaminitis Chronic Hyponatremia, asymptomatic Plan: Immobilize left lower extremity, nonweightbearing on left lower extremity until orthopedic evaluation RCRI 0, mets>4, no pulm history w normal exam. cleared for surgery. Plan of bag CIWA protocol Folic acid 1 mg daily Pain control PRN Moderate sliding scale insulin q.4 changed to q.6 Zofran p.r.n. for antiemetic Protonix IV Thiamine injection 1000 IV daily 5 days Med surge Full code Plan discussed with: Patient My Orders Orders - SOFIE PAZ MD Procedure Category Date Status Time Pt Request For Service PT 04/25/25 Logged 10:20 Morphine Sulfate PHA 04/25/25 In Process Injection 14:10 Hydrocodone-Acet PHA 04/25/25 In Process 10/325mg Tab ([place] 13:45 Date of Service: Apr 25, 2025 Billing Provider: SOFIE PAZ MD Common Visit Codes: [id number] INP/OBS CARE(HIGH) SOFIE PAZ MD Apr 25, 2025 15:10
[2025-04-25 17:12] VITALS: BP 127/88; PULSE 77; RESP 18; TEMP 98.4; O2SAT 96
[2025-04-25] MEDS: HYDROcodone-ACET 10/325MG TAB PO PRN (19:45)
[2025-04-25 21:00] VITALS: BP 152/80; PULSE 83; RESP 18; TEMP 98.2; O2SAT 91
[2025-04-26] VITALS (7 sets, daily range): BP systolic 136–155; BP diastolic 73–89; PULSE 71–81; RESP 16–18; TEMP 97.6–98.2; O2SAT 93–99
--- NOTE | 2025-04-26 09:18 | DVHPN2 ---
Subjective Patient doing well, continues to have pain in the left ankle. Reviewed: H&P Changes from previous H/P or p: No Changes General: Per HPI Eyes: No Pain, No Vision change, No Conjunctivae inflammation, No Eyelid inflammation, No Other, No Redness ENT: No Ear pain, No Ear discharge, No Nose pain, No Nose discharge, No Nose congestion, No Mouth pain, No Mouth swelling, No Throat pain, No Throat swelling, No Other Cardiovascular: No Chest Pain, No Palpitations, No Orthopnea, No Paroxysmal Noc. Dyspnea, No Edema, No Lt Headedness, No Other Respiratory: No Cough, No Dry, No Shortness of breath; SOB with excertion; No Wheezing, No Hemoptysis, No Pleuritic Pain, No Sputum, No Other Gastrointestinal: Nausea, Vomiting; No Abdominal Pain, No Diarrhea, No Constipation, No Melena, No Hematochezia, No Other Genitourinary: No Dysuria, No Frequency, No Incontinence, No Hematuria, No Retention, No Other Musculoskeletal: No other, No neck pain, No shoulder pain, No arm pain, No back pain, No hand pain; leg pain, foot pain Skin: No Rash, No Lesions, No Jaundice, No Bruising, No Other Objective Vitals Vital Signs Date Time Temp Pulse Resp B/P (MAP) Pulse Ox O2 Delivery O2 Flow Rate FiO2 04/26/25 08:40 74 18 142/85 04/26/25 07:52 Room Air* 0 21 04/26/25 05:00 98.2 96 98.2 Intake/Output Intake and Output 04/26/25 07:00 Intake Total 1950 ml Output Total 3650 ml Balance -1700 ml Intake Oral 1950 ml Output Urine Total 3650 ml Exam GEN: Healthy appearing, well-developed, NAD. HEENT: NC/AT; MMM. CV: RRR, no m/r/g. LUNGS: CTAB, no w/r/c. ABD: Soft, NT/ND, NBS, no masses or organomegaly. EXT: skin Warm, well perfused. no rashes. No clubbing, cyanosis, or edema. Left ankle decreased range motion with pain NEURO: Ambulating with no limitations. No focal deficits. Medications Current Medications Medications Dose Ordered Sig/Jaiden Route Start Time Stop Time Status Last Admin Dose Admin Enoxaparin Sodium 40 mg DAILY SC 04/23/25 10:00 9/3/25 08:39 40 MG Diagnostic Test (Pha) 1 strip IQ4HR 04/23/25 00:00 04/26/25 08:00 1 STRIP Insulin Human Regular IQ4HR SC 04/23/25 00:00 04/26/25 08:00 3 UNITS Dextrose 50 ml UD PRN IV 04/22/25 22:45 Acetaminophen 650 mg Q4HP PRN PO 04/22/25 23:00 Ketorolac Tromethamine 15 mg Q8HP PRN IV 04/22/25 23:00 04/27/25 22:59 04/25/25 13:19 15 MG Pantoprazole Sodium 40 mg DAILY IV 04/23/25 10:00 04/26/25 08:39 40 MG Ondansetron HCl 4 mg Q6HPRN PRN IV 04/23/25 06:00 04/25/25 10:06 4 MG Baclofen 10 mg BID PO 04/24/25 22:00 04/26/25 08:38 10 MG Multivitamins 1 tab DAILY PO 04/25/25 10:00 04/26/25 08:38 1 TAB Magnesium Oxide 400 mg DAILY PO 04/25/25 10:00 04/26/25 08:38 400 MG Nitroglycerin 0.4 mg Q5MINP PRN SL 04/24/25 17:15 Morphine Sulfate 2 mg Q4HPRN PRN IV 04/25/25 14:10 04/26/25 08:40 2 MG Acetaminophen/ Hydrocodone Bitart 1 tab Q4HP PRN PO 04/25/25 13:45 04/26/25 05:14 1 TAB Laboratory Results Laboratory Tests 04/25/25 05:30 Urinalysis Test 04/22/25 18:46 Urine Color Colorless (Yellow) Urine Clarity Clear (Clear) Urine pH 5.5 (5.0-9.0) Urine Specific [place] 1.002 (1.001-1.035) Urine Protein Negative (Negative) Urine Ketones Negative (Negative) Urine Blood Negative /uL (Negative) Urine Nitrite Negative (Negative) Urine Bilirubin Negative (Negative) Urine Urobilinogen Normal mg/dL (Negative) Urine Leukocyte Esterase Negative /uL (Negative) Urine RBC None seen /hpf (0 - 3) Urine Microscopic WBC < 1 /HPF (0-3) Urine Squamous Epithelial Cells Few /hpf (<5) Urine Bacteria None seen /hpf (None Seen) Urine Glucose 4+ mg/dL (Normal) H Labs and/or images reviewed: Labs reviewed by me, Image(s) reviewed by me Assessment/Plan Assessment/Plan Patient is a 50-year-old male with past medical history of type 2 diabetes, who comes in after sustaining a mechanical fall. Patient notes he had multiple drinks of alcohol this morning after which he sustained a fall details of which he does not remember. Patient notes he woke up on the floor and could not move he dragged himself to his bed where he used his phone to called 911. Patient endorses heavy history of alcohol use with 6 pack every day for the last 15-20 years. Ankle x-ray showed fracture of the medial and lateral malleolus with calcaneal fracture not excluded. Patient was also noted to be in mild alcohol withdrawal with CIWA score 8-9. 04/23:. Patient doing well left ankle bandaged. He also had before this incident left flank pain no CVA tenderness. We will do renal ultrasound and patient might need left ribs x-ray tomorrow if no cause found. Otherwise waiting for Orthopedics to evaluate patient. Pain control PRN. Keep on regular diet. Waiting for ortho eval to determine when to make NPO. 04/24: No eval from ortho, RN we will follow up. We will get left rib x-ray, we will start baclofen 10 b.i.d.. Otherwise continue plan to follow up. Patient was taken to OR today with ortho. 04/25: PT eval today, strict nonweightbearing left lower extremity. Postop day 1, optimizing pain control prn today. 04/26: PT head evaluated yesterday, they recommend home health with bedside commode, walker, wheelchair. We will order these today. . patient still requiring significant pain control IV morphine, we will keep 1 more day to help with pain and 1 more session with PT. Patient constipated no bowel movement since admission, we have started yesterday lactulose and docusate. Diagnosis : S/p mechanical fall Fracture of the left lateral and medial malleolus/distal fibula Alcohol intoxication with mild withdrawal, CIWA 8-9 Alcohol use disorder Type 2 diabetes, uncontrolled. HB A1c 10% Mild transaminitis Chronic Hyponatremia, asymptomatic Plan: Immobilize left lower extremity, nonweightbearing on left lower extremity until orthopedic evaluation RCRI 0, mets>4, no pulm history w normal exam. cleared for surgery. Plan of bag CIWA protocol Folic acid 1 mg daily Pain control PRN Moderate sliding scale insulin q.4 changed to q.6 Zofran p.r.n. for antiemetic Protonix IV Thiamine injection 1000 IV daily 5 days Med surge Full code Plan discussed with: Patient My Orders Orders - SFOIE PAZ MD Procedure Category Date Status Time Pt Request For Service PT 04/25/25 Logged 10:20 Morphine Sulfate PHA 04/25/25 In Process Injection 14:10 Hydrocodone-Acet PHA 04/25/25 In Process 10/325mg Tab ([place] 13:45 Date of Service: Apr 26, 2025 Billing Provider: SOFIE PAZ MD Common Visit Codes: [id number] INP/OBS CARE(HIGH) SOFIE PAZ MD Apr 26, 2025 09:18
--- NOTE | 2025-04-26 11:53 | ECG ---
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
[2025-04-26] MEDS: DOCUSATE SOD 100 MG CAP PO SCH (21:08)
[2025-04-26] MEDS: LACTULOSE 20Gm/30ML SOLN PO SCH (21:08)
[2025-04-27 05:00] VITALS: BP 151/92; PULSE 70; RESP 18; TEMP 97.9; O2SAT 96
[2025-04-27 08:00] VITALS: PULSE 76; RESP 18; O2SAT 96
[2025-04-27 09:00] VITALS: BP 148/87; PULSE 76; RESP 17; TEMP 97; O2SAT 92
[2025-04-27 13:00] VITALS: BP 145/84; PULSE 83; RESP 18; TEMP 96.5; O2SAT 96
[2025-04-27] MEDS ORDERED: PANT40TA2 PO (13:15)
[2025-04-27] MEDS ORDERED: HYDR-4798 PO (13:15)
[2025-04-27] MEDS ORDERED: IBUP1TAB5 PO (13:15)
[2025-04-27] MEDS ORDERED: BACL10TA PO (13:15)
[2025-04-27] MEDS ORDERED: DOCU-265 PO (13:23)
[2025-04-27] MEDS ORDERED: LACT10SO3 PO (13:23)
--- NOTE | 2025-04-27 13:24 | DVHDS2 ---
Discharge Summary Date of Admission Apr 22, 2025 at 22:43 Date of Discharge: Apr 27, 2025 Labs/Diagnostic Data: Laboratory Results Test 04/27/25 11:08 04/25/25 05:30 04/22/25 19:18 04/22/25 18:46 POC Glucose 269 mg/dl (70-106) White Blood Count 7.6 10^3/uL (4.4-10.8) Red Blood Count 5.18 10^6/uL (4.5-5.90) Hemoglobin 16.3 g/dL (13.5-17.5) Hematocrit 46.8 % (41.0-53.0) Mean Corpuscular Volume 90.2 fL (80.0-100.0) Mean Corpuscular Hemoglobin 31.5 pg (28.0-32.0) Mean Corpuscular Hemoglobin Concent 34.9 g/dL (32.0-36.0) Red Cell Distribution Width 14.2 % (11.8-14.3) Platelet Count 189 10^3/uL (140-450) Mean Platelet Volume 8.3 fL (6.9-10.8) Neutrophils (%) (Auto) 77.0 % (37.0-80.0) Lymphocytes (%) (Auto) 10.9 % (10.0-50.0) Monocytes (%) (Auto) 10.9 % (0.0-12.0) Eosinophils (%) (Auto) 0.8 % (0.0-7.0) Basophils (%) (Auto) 0.4 % (0.0-2.0) Neutrophils # (Auto) 5.8 10 ^3/uL (1.6-8.6) Lymphocytes # (Auto) 0.8 10 ^3/uL (0.4-5.4) Monocytes # (Auto) 0.8 10 ^3/uL (0-1.3) Eosinophils # (Auto) 0.1 10 ^3/uL (0-0.8) Basophils # (Auto) 0 10 ^3/uL (0-0.2) Nucleated Red Blood Cells 0.1 % Sodium Level 131 mmol/L (136-145) Potassium Level 3.7 mmol/L (3.5-5.1) Chloride Level 95 mmol/L (98-107) Carbon Dioxide Level 27 mmol/L (20-31) Anion Gap 9 (5-15) Blood Urea Nitrogen < 5 mg/dL (9-23) Creatinine 0.65 mg/dL (0.700-1.30) Glomerular Filtration Rate Calc 114 mL/min (>90) BUN/Creatinine Ratio 7.7 (10.0-20.0) Serum Glucose 157 mg/dL (74-106) Calcium Level 8.6 mg/dL (8.7-10.4) Total Bilirubin 1.4 mg/dL (0.2-1.0) Aspartate Amino Transferase (AST) 39 U/L (13-40) Alanine Aminotransferase (ALT) 27 U/L (7-40) Alkaline Phosphatase 82 U/L (46-116) Total Protein 7.2 g/dL (5.7-8.2) Albumin 3.9 g/dL (3.2-4.8) Lactic Acid Level 2.0 mmol/L (0.4-2.0) Troponin I High Sensitivity < 3 ng/L (</=54) Urine Color Colorless (Yellow) Urine Clarity Clear (Clear) Urine pH 5.5 (5.0-9.0) Urine Specific [place] 1.002 (1.001-1.035) Urine Protein Negative (Negative) Urine Ketones Negative (Negative) Urine Blood Negative /uL (Negative) Urine Nitrite Negative (Negative) Urine Bilirubin Negative (Negative) Urine Urobilinogen Normal mg/dL (Negative) Urine Leukocyte Esterase Negative /uL (Negative) Urine RBC None seen /hpf (0 - 3) Urine Microscopic WBC < 1 /HPF (0-3) Urine Squamous Epithelial Cells Few /hpf (<5) Urine Bacteria None seen /hpf (None Seen) Urine Glucose 4+ mg/dL (Normal) Urine Opiates Screen Neg (NEGATIVE) Urine Fentanyl Screen Neg (NEGATIVE) Urine Barbiturates Screen Neg (NEGATIVE) Urine Phencyclidine Screen Neg (NEGATIVE) Urine Amphetamines Screen Neg (NEGATIVE) Urine Benzodiazepines Screen Neg (NEGATIVE) Urine Cocaine Screen Neg (NEGATIVE) Urine Cannabinoids Screen Pos (NEGATIVE) Test 04/22/25 17:28 Magnesium Level 2.0 mg/dL (1.6-2.6) Creatine Kinase 177 U/L (46-171) Plasma/Serum Blood Alcohol 271.9 mg/dL (<10) Other Laboratory Tests 9/2/25 05:30 Brief Hx & Hospital Course: Patient is a 50-year-old male with past medical history of type 2 diabetes, who comes in after sustaining a mechanical fall. Patient notes he had multiple drinks of alcohol this morning after which he sustained a fall details of which he does not remember. Patient notes he woke up on the floor and could not move he dragged himself to his bed where he used his phone to called 911. Patient endorses heavy history of alcohol use with 6 pack every day for the last 15-20 years. Ankle x-ray showed fracture of the medial and lateral malleolus with calcaneal fracture not excluded. Patient was also noted to be in mild alcohol withdrawal with CIWA score 8-9. 04/23:. Patient doing well left ankle bandaged. He also had before this incident left flank pain no CVA tenderness. We will do renal ultrasound and patient might need left ribs x-ray tomorrow if no cause found. Otherwise waiting for Orthopedics to evaluate patient. Pain control PRN. Keep on regular diet. Waiting for ortho eval to determine when to make NPO. 04/24: No eval from ortho, RN we will follow up. We will get left rib x-ray, we will start baclofen 10 b.i.d.. Otherwise continue plan to follow up. Patient was taken to OR today with ortho. 04/25: PT eval today, strict nonweightbearing left lower extremity. Postop day 1, optimizing pain control prn today. 04/26: PT head evaluated yesterday, they recommend home health with bedside commode, walker, wheelchair. We will order these today. . patient still requiring significant pain control IV morphine, we will keep 1 more day to help with pain and 1 more session with PT. Patient constipated no bowel movement since admission, we have started yesterday lactulose and docusate. 04/27: Patient able to be weaned off IV pain meds. We will plan to go home. tolerating p.o.. Vitals stable. stable for discharge as per plan below Diagnosis: Fracture of the left lateral and medial malleolus/distal fibula s/p ORIF left fibula S/p mechanical fall Alcohol intoxication with mild withdrawal, CIWA 8-9 , resolved Alcohol use disorder Type 2 diabetes, uncontrolled. HB A1c 10% Mild transaminitis Chronic Hyponatremia, asymptomatic Discharge plan: - SNF for PT rehab - Bowel regimen with lactulose 10g twice daily for 7 days, docusate 100 mg twice daily for 30 days - Patient to use bedside commode, front wheel walker, crutches, wheelchair. All devices to assist with STRICT left ankle nonweightbearing Status (do not put weight on left ankle/foot). - Patient will follow up with Orthopedics - for pain use, 1st-line Tylenol, second-line prescription ibuprofen, 3rd-line [place] 10 up to 3 times daily as needed. - orthopedics we will evaluate patient for disability for next 6 weeks. - take Protonix daily for next 30 days - Take baclofen twice daily for 7 days, extra pills to be uses as needed Condition at Discharge: Fair Final Diagnosis/Problems List Fracture of the left lateral and medial malleolus/distal fibula s/p ORIF left fibula S/p mechanical fall Alcohol intoxication with mild withdrawal, CIWA 8-9 , resolved Alcohol use disorder Type 2 diabetes, uncontrolled. HB A1c 10% Mild transaminitis Chronic Hyponatremia, asymptomatic Discharge Disposition: Home with Health Services Discharge Instruct/Medications Diet: Regular Activity: See Comment Activity comment: Nonweightbearing left foot Follow Up/Referral: See below Medications: See below Scheduled Albuterol Sulfate (Ventolin Mdi), 90 MCG IN QIDP Amoxicillin & Pot Clavulanate (Amoxicillin/Potassium Cla), 1 TAB PO BID Docusate Sodium (Docusate Sodium), 100 MG PO BID Gabapentin (Gabapentin), 1 TAB PO BID Glipizide (Glipizide Er), 1 TAB PO DAILY Hydrocodone-Acetaminophen (Hydrocodone Bitartrate/AC 5-325 mg), 1 TAB PO BID Lactulose (Lactulose), 10 GM PO BID Metoclopramide Hcl (Reglan), 10 MG PO BID Pantoprazole Sodium Sesquihydr (Protonix), 40 MG PO DAILY Prednisone (Prednisone), 10 MG PO BID Tramadol HCl (Tramadol HCl), 50 MG PO BID Tramadol Hcl (Tramadol Hcl), 1 TAB PO BID, (Reported) Scheduled PRN Baclofen (Baclofen), 10 MG PO BID PRN Hydrocodone-Acetaminophen (Hydrocodone Bitartrate/AC 10-325 mg), 1 TAB PO QIDPRN PRN Ibuprofen Micronized (Ibuprofen), 600 MG PO BIDP PRN Tizanidine Hydrochloride (Tizanidine Hcl), 1 TAB PO Q8HPRN PRN for PAIN SCALE 1 THRU 6, (Reported) Discharge Statement: "Patient was advised to return to the ER or call 911 if any headaches, dizziness, shortness of breath, chest pain, abdominal pain, bleeding, fevers, or worsening of medical condition. Patient was counseled about treatment plan, medications, possible side effects, patientverbalized understanding. All questions were answered to the best of my ability. This discharge took greater then 30 minutes in planning, reviewing documentation, counseling the patient, and discussing with other team members." Date of Service: Apr 27, 2025 Billing Provider: SOFIE PAZ MD Common Visit Codes: [id number]/[id number] DISCH DAY >30min SOFIE PAZ MD Apr 27, 2025 13:24
[2025-04-28] MEDS ORDERED: THIAMINE HCL 100 MG TAB PO SCH (10:00)
== END 2025-04-27 19:35 | DRG 313 ==
LOC: ER 15:14 → EDBD 15:14 → OVERFLOW 22:43 → EAST 04-23 04:14
PROVIDERS: ADMIT Student in an Organized Health Care Education/Training Program; ATTEND Student in an Organized Health Care Education/Training Program
PROC: 0QSK04Z Reposition Left Fibula with Internal Fixation Device, Open Approach (ICD-10-PCS; principal; 2025-04-24 16:04)
DX: S82.842A Displaced bimalleolar fracture of left lower leg, initial encounter for closed fracture (principal); E87.1 Hypo-osmolality and hyponatremia; S09.8XXA Other specified injuries of head, initial encounter; Z68.41 Body mass index [BMI] 40.0-44.9, adult; E11.9 Type 2 diabetes mellitus without complications; F10.129 Alcohol abuse with intoxication, unspecified; E66.9 Obesity, unspecified; F10.139 Alcohol abuse with withdrawal, unspecified; K59.00 Constipation, unspecified; R74.01 Elevation of levels of liver transaminase levels; Z90.49 Acquired absence of other specified parts of digestive tract; W18.39XA Other fall on same level, initial encounter; Y93.89 Activity, other specified; Y92.89 Other specified places as the place of occurrence of the external cause; Y99.8 Other external cause status; Y90.8 Blood alcohol level of 240 mg/100 ml or more
CPT/HCPCS: 36415; 70450; 71045; 71101; 72125; 73600; 73610; 76000; 76775; 80053; 80307; 80320; 81001; 82550; 82962; 83605; 83735; 84484; 85025; 93005; 93306; 96361; 96374; 97110; 97116; 97163; 99291; G0378; J1815; J1885; J2003; J2250; J2405; J2470; J2704

== ENCOUNTER 2025-05-17 09:52 | Inpatient (IN) | payer MEDICAID ==
[~2025-05-17] VITALS: Ht 170.2 cm; Wt 120.0 kg
[~2025-05-17 09:52] MED LIST changes: -AMOX875T4 PO; +BACL10TA PO; +DOCU-265 PO; +HYDR-4798 PO; +IBUP1TAB5 PO; +LACT10SO3 PO; +PANT40TA2 PO; +TIZA-142 PO; +TRAM50TA2 PO
--- NOTE | 2025-05-17 10:31 | ED.PDOC ---
History of Present Illness HPI Comments [age] year old male presents to the ER with prior medical history of diabetes and the chief complaint of flank pain. Patient reports on having left flank pain on 04/10/2025 and came to [facility] ER on 04/12/[address]/x-ray done, for which the patient was pain killers and sent home. Patient broke his left ankle recently and needed surgery when the patient was admitted in the hospital she still had the left flank pain which turned into a bulge radiating to the front. On the pain being tender to touch, burning sensation and throbbing. Denies chills, fever, N/V/D, SOB, CP. No other associated symptoms, modifiers, recent injuries or sick contacts present at this time. Chief Complaint: Flank Pain Time Seen by MD: 10:30 Reviewed Notes: Nurses Notes, Medications, Allergies Allergies: Coded Allergies: NO KNOWN ALLERGIES (Unverified , 11/11/23) Home Meds Active Scripts Docusate Sodium (Docusate Sodium) 100 Mg Cap, 100 MG PO BID for 30 Days, #60 CAP 0 Refills Prov:SOFIE PAZ MD 04/27/25 Lactulose (Lactulose) 10 Gm/15 Ml [place], 10 GM PO BID for 7 Days, #250 ML Prov:SOFIE PAZ MD 04/27/25 Baclofen (Baclofen) 10 Mg Tab, 10 MG PO BID PRN for 7 Days, #20 TAB 0 Refills Prov:SOFIE PAZ MD 04/27/25 Hydrocodone-Acetaminophen (Hydrocodone Bitartrate/AC 10-325 mg) 1 Tab Tab, 1 TAB PO QIDPRN PRN for 7 Days, #28 TAB 0 Refills Prov:SOFIE PAZ MD 04/27/25 Pantoprazole Sodium Sesquihydr (Protonix) 40 Mg Tab, 40 MG PO DAILY, #30 TAB 0 Refills Prov:SOFIE PAZ MD 04/27/25 Ibuprofen Micronized (Ibuprofen) 600 Mg Tab, 600 MG PO BIDP PRN, #30 TAB 0 Refills Prov:SOFIE PAZ MD 04/27/25 Tramadol HCl (Tramadol HCl) 50 Mg Tab, 50 MG PO BID, #20 TAB Prov:DARYN BHATT 04/12/25 Hydrocodone-Acetaminophen (Hydrocodone Bitartrate/AC 5-325 mg) 1 Tab Tab, 1 TAB PO BID for 5 Days, #10 TAB Prov:SUSAN CARRILLO MD 01/08/24 Metoclopramide Hcl (Reglan) 10 Mg Tab, 10 MG PO BID for 5 Days, #10 TAB Prov:SUSAN CARRILLO MD 01/08/24 Gabapentin (Gabapentin) 600 Mg Tab, 1 TAB PO BID, #40 TAB Prov:DARYN BHATT 11/11/23 Glipizide (Glipizide Er) 10 Mg Tab, 1 TAB PO DAILY, #30 TAB Prov:DARYN BHATT 11/11/23 Albuterol Sulfate (VENTOLIN MDI) 90 Mcg Ih, 90 MCG IN QIDP, #1 INH 0 Refills Prov:IVANA CRUMP 09/02/21 Prednisone (Prednisone) 10 Mg Tab, 10 MG PO BID for 5 Days, #10 MG 0 Refills Prov:IVANA CRUMP 09/02/21 Reported Medications Tizanidine Hydrochloride (Tizanidine Hcl) 4 Mg Tab, 1 TAB PO Q8HPRN PRN for PAIN SCALE 1 THRU 6 04/23/25 Tramadol Hcl (Tramadol Hcl) 50 Mg Tab, 1 TAB PO BID 04/23/25 Information Source: Patient Mode of Arrival: Wheelchair Severity: Moderate Timing: Weeks Duration: Since onset Prehospital treatment: None Past Medical History PAST MEDICAL HISTORY: DM Surgical History (Other): Left ankle surgery Family History Family History: Reviewed,noncontributory to illness, Unknown Social History Smoker: Non-Smoker Alcohol: Heavy Drugs: Denies Drug Use Lives In: Home Constitutional: denies: chills, diaphoresis, fatigue, fever, malaise, sweats, weakness, others EENTM: denies: blurred vision, double vision, ear bleeding, ear discharge, ear drainage, ear pain, ear ringing, eye pain, eye redness, hearing loss, mouth pain, mouth swelling, nasal discharge, nose bleeding, nose congestion, nose pain, photophobia, tearing, throat pain, throat swelling, voice changes, others Respiratory: denies: cough, hemoptysis, orthopnea, SOB at rest, shortness of breath, SOB with excertion, stridor, wheezing, others Cardiovascular: denies: chest pain, dizzy spells, diaphoresis, Dyspnea on exertion, edema, irregular heart beat, left arm pain, lightheadedness, palpitations, PND, syncope, others Gastrointestinal: denies: abdomen distended, abdominal pain, blood streaked bowels, constipated, diarrhea, dysphagia, difficulty swallowing, hematemesis, melena, nausea, poor appetite, poor fluid intake, rectal bleeding, rectal pain, vomiting, others Genitourinary: reports: flank pain; denies: burning, dysuria, frequency, hematuria, incontinence, penile discharge, penile sore, pain, testicle pain, testicle swelling, urgency, others Neurological: denies: dizziness, fainting, headache, left sided numbness, left sided weakness, numbness, paresthesia, pre-existing deficit, right sided numbness, right sided weakness, seizure, speech problems, tingling, tremors, weakness, others Musculoskeletal: denies: back pain, gout, joint pain, joint swelling, muscle pain, muscle stiffness, neck pain, others Integumetry: denies: bruises, change in color, change in hair/nails, dryness, laceration, lesions, lumps, rash, wounds, others Allergic/Immunocompromised: denies: Difficulty Healing, Frequent Infections, Hives, Itching, others Hematologic/Lymphatic: denies: anemia, blood clots, easy bleeding, easy bruising, swollen glands, others Endocrine: denies: excessive hunger, excessive sweating, excessive thirst, excessive urination, flushing, intolerance to cold, intolerance to heat, unexplained weight gain, unexplained weight loss, others Psychiatric: denies: anxiety, bipolar disorder, depression, hopeless, panic disorder, schizophrenia, sleepless, suicidal, others All Other Systems: Reviewed and Negative Physical Exam General Appearance: No Apparent Distress, Normal HEENT: Normal ENT Inspection, Pharynx Normal, TMs Normal Neck: Full Range of Motion, Non-Tender, Normal, Normal Inspection Respiratory: Chest Non-Tender, Lungs Clear, No Accessory Muscle Use, No Respiratory Distress, Normal Breath Sounds Cardiovascular: No Edema, No JVD, No Murmur, No Gallop, Normal Peripheral Pulses, Regular Rate/Rhythm Breast Exam: Deferred Gastrointestinal: No Organomegaly, Non Tender, No Pulsatile Mass, Normal Bowel Sounds, Soft Genitalia: Deferred Pelvic: Deferred Rectal: Deferred Extremities: No calf tenderness, Normal capillary refill, Normal inspection, Normal range of motion, Non-tender, No pedal edema Musculoskeletal : Apperance: Normal 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 Was a procedure done?: No Differential Dx Considerations may include: Acute cystitis, ureteral colic, pyelonephritis, musculoskeletal strain X-Ray, Labs, Meds, VS Vital Signs Date Time Temp Pulse Resp B/P (MAP) Pulse Ox O2 Delivery O2 Flow Rate FiO2 05/17/25 14:16 98.2 60 16 138/54 (82) 95 98.2 05/17/25 09:55 96.1 62 18 122/70 95 96.1 Lab Test 05/17/25 10:59 05/17/25 10:46 Range/Units Urine Color Light-yellow Yellow Urine Clarity Clear Clear Urine pH 6.0 5.0-9.0 Urine Specific [place] 1.010 1.001-1.035 Urine Protein Negative Negative Urine Ketones Trace Negative Urine Blood Negative Negative /uL Urine Nitrite Negative Negative Urine Bilirubin Negative Negative Urine Urobilinogen Normal Negative mg/dL Urine Leukocyte Esterase Negative Negative /uL Urine RBC 1 0 - 3 /hpf Urine Microscopic WBC < 1 0-3 /HPF Urine Squamous Epithelial Cells Few <5 /hpf Urine Bacteria Few H None Seen /hpf Urine Glucose Normal Normal mg/dL White Blood Count 7.6 4.4-10.8 10^3/uL Red Blood Count 5.39 4.5-5.90 10^6/uL Hemoglobin 16.1 13.5-17.5 g/dL Hematocrit 47.3 41.0-53.0 % Mean Corpuscular Volume 87.7 80.0-100.0 fL Mean Corpuscular Hemoglobin 29.9 28.0-32.0 pg Mean Corpuscular Hemoglobin Concent 34.1 32.0-36.0 g/dL Red Cell Distribution Width 13.1 11.8-14.3 % Platelet Count 340 140-450 10^3/uL Mean Platelet Volume 8.7 6.9-10.8 fL Neutrophils (%) (Auto) 69.7 37.0-80.0 % Lymphocytes (%) (Auto) 21.3 10.0-50.0 % Monocytes (%) (Auto) 5.9 0.0-12.0 % Eosinophils (%) (Auto) 2.2 0.0-7.0 % Basophils (%) (Auto) 0.9 0.0-2.0 % Neutrophils # (Auto) 5.3 1.6-8.6 10 ^3/uL Lymphocytes # (Auto) 1.6 0.4-5.4 10 ^3/uL Monocytes # (Auto) 0.4 0-1.3 10 ^3/uL Eosinophils # (Auto) 0.2 0-0.8 10 ^3/uL Basophils # (Auto) 0.1 0-0.2 10 ^3/uL Nucleated Red Blood Cells 0.1 % Sodium Level 133 L 136-145 mmol/L Potassium Level 4.2 3.5-5.1 mmol/L Chloride Level 97 L 98-107 mmol/L Carbon Dioxide Level 30 20-31 mmol/L Anion Gap 6 5-15 Blood Urea Nitrogen 12 9-23 mg/dL Creatinine 0.79 0.700-1.30 mg/dL Glomerular Filtration Rate Calc 108 >90 mL/min BUN/Creatinine Ratio 15.2 10.0-20.0 Serum Glucose 185 H 74-106 mg/dL Calcium Level 9.8 8.7-10.4 mg/dL Troponin I High Sensitivity < 3 L </=54 ng/L Time of 1ST Reevaluation: 11:00 Reevaluation 1ST: Unchanged Patient Education/Counseling: Diagnosis, Treatment, Prognosis Family Education/Counseling: No Family Present SEPSIS Sepsis Screen Date sepsis recognized/suspect: May 17, 2025 Time Sepsis recognized/suspect: 958 Recent Procedure: No On Antibiotic Therapy: No Respiratory Rate >20: No Heart Rate >90: No Temp<36 C (96.8 F) or >38.3 C: No SBP <90 or MAP <65 mmHG: No New Acute Mental Status Change: No Is the patient on CPAP, BIPAP,: No Physician Orders Ct Ab Pel With Iv Con Only (05/17/25 13:01) Chest Portable (05/17/25 13:01) Lactic Acid W/ Reflex Order (05/17/25 15:06) Blood Culture (05/17/25 15:06) Cefepime 2gm Extended Infusion (05/17/25 15:15) Vital Signs Date Time Temp Pulse Resp B/P (MAP) Pulse Ox O2 Delivery O2 Flow Rate FiO2 05/17/25 14:16 98.2 60 16 138/54 (82) 95 98.2 05/17/25 09:55 96.1 62 18 122/70 95 96.1 Laboratory Tests Test 05/17/25 10:46 White Blood Count 7.6 10^3/uL (4.4-10.8) Departure 1 Departure Time of Disposition: 15:07 (Patient presented with abdominal pain that was concerning for possible appendicits, gastritis, cholecystitis, colitis, gastr oenteritis, sbo, or orther possible surgical emergency. Data: 1. I ordered and reviewed the result of at least 3 labs including a CBC, BMP, and Urinalysis. 2. I independently interpreted the following tests: CT Abdomen and Pelvis is concerning for pyelonephritis.Risk:This patient has a high risk of morbidity due to further diagnostic testing or treatment and may suffer from an acute abdominal process disorder. Workup reveals pyelonephritis and intractable abdominal pain and patient should be admitted for further workup. and possible expert consultation. ) Impression: Primary Impression: Pyelonephritis Additional Impression: Intractable abdominal pain Disposition: ADMITTED INPATIENT Admit to: Med Surg Condition: Guarded Critical Care Note Critical Care Time?: Yes Critical care comment: Intractable abdominal pain Authorized and Performed by: Eduardo Dunn MD Total critical care time: Approximately 39 minutes Due to a high probability of clinically significant, life threatening deterioration, the patient required my highest level of preparedness to interve ne emergently and I personally spent this critical care time directly and personally managing the patient. This critical care time included obtaining a history; examining the patient; pulse oximetry; ordering and review of studies; arranging urgent treatment with development of a management plan; evaluation of patient's response to treatment; frequent reassessment; and, discussions with other providers. This critical care time was performed to assess and manage the high probability of imminent, life-threatening deterioration that could result in multi-organ failure. It was exclusive of separately billable procedures and treating other patients and teaching time. Please see my other sections and the rest of the note for further information on patient assessment and treatment. Stability Stability form required: No I personally scribed for EDUARDO DUNN MD ([email or web address]) on 05/17/25 at 10:31. Electronically submitted by Shane Wellington ([email or web address]). EDUARDO DUNN MD May 17, 2025 10:31
[2025-05-17 11:01] LABS: Hematocrit 47.3 % (41.0-53.0); Hemoglobin 16.1 g/dL (13.5-17.5); Mean Corpuscular Hemoglobin 29.9 pg (28.0-32.0); Mean Corpuscular Volume 87.7 fL (80.0-100.0); Nucleated Red Blood Cells % 0.1 %
[2025-05-17 11:05] LABS: Potassium 4.2 mmol/L (3.5-5.1)
[2025-05-17 11:06] LABS: Anion Gap 6 (5-15); Calcium 9.8 mg/dL (8.7-10.4); Carbon Dioxide 30 mmol/L (20-31); Chloride 97 mmol/L (98-107); Sodium 133 mmol/L (136-145)
[2025-05-17 11:11] LABS: BUN/Creatinine Ratio 15.2 (10.0-20.0); Blood Urea Nitrogen 12 mg/dL (9-23)
[2025-05-17 11:12] LABS: Glucose 185 mg/dL (74-106)
[2025-05-17 11:19] LABS: Urine Protein, UAD Negative (Negative)
--- NOTE | 2025-05-17 13:56 | DVH ---
INDICATION: flank pain TECHNIQUE: Frontal view of the chest. COMPARISON: XY CHEST PORTABLE on DOS: 04/22/25, CHEST XRAY 1 VIEW on DOS: 09/02/21 FINDINGS: . The heart and mediastinal contours are grossly unremarkable. There is no evidence of pleural disea se. The lungs are clear. The bony structures of the chest are intact without fracture. IMPRESSION: 1. No evidence of acute disease.
--- NOTE | 2025-05-17 14:15 | DVH ---
EXAM: CT CT AB PEL WITH IV CON ONLY HISTORY: flank pain, sob TECHNIQUE: Volumetric multidetector CT images of the abdomen and pelvis were obtained after the admin istration of intravenous contrast. All CT scans at this facility use dose modulation, iterative recon struction, and/or weight based dosing when appropriate to reduce radiation dose to as low as reasonab ly achievable. COMPARISON: CT CT AB PEL WO CON-NO ORAL OR IV on DOS: 04/12/25 FINDINGS: [LOWER CHEST]: Small oval-shaped pulmonary nodules located in the periphery of bilateral lung bases. [LIVER]: Normal hepatic size without suspicious focal lesion. [GALLBLADDER AND BILIARY TREE]: No cholelithiasis. [SPLEEN]: Unremarkable. [PANCREAS]: Unremarkable. [ADRENAL GLANDS]: Unremarkable [KIDNEYS]: No hydronephrosis. Minimal possible asymmetric right kidney hypoenhancement with minimal p erinephric edema. Imaging finding is nonspecific and may be related to acute kidney injury however py elonephritis not excluded. Recommend clinical correlation. [BLADDER]: Circumferential bladder wall thickening, which may be seen in the setting of acute versus chronic cystitis and correlate with urinalysis. [REPRODUCTIVE ORGANS]: Unremarkable. [BOWEL/MESENTERY]: Stomach is normal. No CT evidence of bowel obstruction. [ASCITES]: Absent [LYMPHADENOPATHY]: No pathologically enlarged lymph nodes by CT size criteria [VASCULATURE]: No aneurysmal dilatation. [ABDOMINAL WALL]: Small fat-containing umbilical hernia. [MUSCULOSKELETAL]: No acute fracture or aggressive focal osseous lesion. IMPRESSION: 1. Minimal possible asymmetric right kidney hypoenhancement with minimal perinephric edema. 2. Imaging finding is nonspecific and may be related to acute kidney injury however pyelonephritis no t excluded. 3. Recommend clinical correlation. 4. Circumferential bladder wall thickening, which may be seen in the setting of acute versus chronic cystitis and correlate with urinalysis.
[2025-05-17] MEDS: ONDANSETRON HCL 4 MG/2 ML VIAL IV ONE (15:51)
[2025-05-17] MEDS: CEFEPIME 2GM/50ML NS 50 ML IV ONE (15:51)
[2025-05-17] MEDS: MORPHINE SULFATE 4 MG/ML SYR/VIAL IV ONE (16:02)
[2025-05-17] MEDS: SODIUM CHLORIDE 0.9% 1,000 ML IV ONE (16:03)
[2025-05-17 17:10] VITALS: PULSE 56; RESP 15; O2SAT 100
[2025-05-17] MEDS ORDERED: ONDANSETRON HCL 4 MG/2 ML VIAL IV PRN (18:15)
[2025-05-17] MEDS ORDERED: DEXTROSE (50%) 50ML SYRG IV PRN (18:15)
--- NOTE | 2025-05-17 18:54 | DVHHPRES ---
History of Present Illness Resident Creating Document: SLOANMarlynURVASHI ClineBALDO RESIDENT History of Present Illness Patient is a 50-year-old male with a medical history of type 2 diabetes mellitus presented to the ED with a chief complaint of left flank pain going on for the last 1 month. Patient reports the pain started about a month ago, [id number] in intensity, gradually progressive, radiates from the left mid back to the left upper quadrant through the left upper flank, burning in sensation, intermittent episodes of severe pain, improves with [place]/morphine while in the hospital. Patient did not report seeing any rash in that area but is not sure about whether it happened or not. He also reports of having an abscess in his gluteal area for the last week and was treated at the rehab facility. And has been in the rehab facility for the last 2 weeks because of left ankle fracture. He denies any nausea, vomiting, diarrhea or constipation. Denies dysuria, nocturia, increased frequency. Medical history: Type 2 diabetes mellitus non-insulin dependent Surgical history: Left ankle surgery, appendectomy Social history: Patient denies smoking, drug use, no alcohol use for the last 30 days Home medications: Tramadol, tizanidine, ibuprofen, glipizide Review of Systems Review of Systems Patient seen and examined at the bedside. Reports that the pain currently is at 6/10, improved after getting morphine. Denies chills, feeling feverish, nausea, vomiting, abdominal pain other than the pain in the left upper flank. Allergies: Coded Allergies: NO KNOWN ALLERGIES (Unverified , 11/11/23) Exam Vital Signs Vital Signs Date Time Temp Pulse Resp B/P (MAP) Pulse Ox O2 Delivery O2 Flow Rate FiO2 05/17/25 17:10 56 15 100 Room Air* 0 21 05/17/25 17:10 97.8 128/69 (88) 97.8 Exam Gen - no pallor, no icterus, no LAD, no edema . Skin - Patients skin is warm and dry. HEENT - normocephalic, atraumatic, moist mucous membranes. Neck - full ROM, no LAD, no JVD Pulmonary - B/L equal breath sounds, no crackles, no wheezing, no stridor. cardiovascular - regular S1,S2 heard, no added sounds, no murmurs heard. GI - soft abdomen with tenderness to palpation in the left upper flank, left upper quadrant in the left upper back. no hepatospleenomegaly. Bowel sounds normoactive Neurological - Patient is A/O X 3 . Bilateral upper extremity strength 5/5, bilateral lower extremity strength 5/5, no facial droop, normal speech, no tremor, no sensory deficiets. Labs/Xrays Labs Test 05/17/25 15:16 05/17/25 10:59 05/17/25 10:46 Range/Units Lactic Acid Level 0.7 0.4-2.0 mmol/L Urine Color Light-yellow Yellow Urine Clarity Clear Clear Urine pH 6.0 5.0-9.0 Urine Specific [place] 1.010 1.001-1.035 Urine Protein Negative Negative Urine Ketones Trace Negative Urine Blood Negative Negative /uL Urine Nitrite Negative Negative Urine Bilirubin Negative Negative Urine Urobilinogen Normal Negative mg/dL Urine Leukocyte Esterase Negative Negative /uL Urine RBC 1 0 - 3 /hpf Urine Microscopic WBC < 1 0-3 /HPF Urine Squamous Epithelial Cells Few <5 /hpf Urine Bacteria Few H None Seen /hpf Urine Glucose Normal Normal mg/dL White Blood Count 7.6 4.4-10.8 10^3/uL Red Blood Count 5.39 4.5-5.90 10^6/uL Hemoglobin 16.1 13.5-17.5 g/dL Hematocrit 47.3 41.0-53.0 % Mean Corpuscular Volume 87.7 80.0-100.0 fL Mean Corpuscular Hemoglobin 29.9 28.0-32.0 pg Mean Corpuscular Hemoglobin Concent 34.1 32.0-36.0 g/dL Red Cell Distribution Width 13.1 11.8-14.3 % Platelet Count 340 140-450 10^3/uL Mean Platelet Volume 8.7 6.9-10.8 fL Neutrophils (%) (Auto) 69.7 37.0-80.0 % Lymphocytes (%) (Auto) 21.3 10.0-50.0 % Monocytes (%) (Auto) 5.9 0.0-12.0 % Eosinophils (%) (Auto) 2.2 0.0-7.0 % Basophils (%) (Auto) 0.9 0.0-2.0 % Neutrophils # (Auto) 5.3 1.6-8.6 10 ^3/uL Lymphocytes # (Auto) 1.6 0.4-5.4 10 ^3/uL Monocytes # (Auto) 0.4 0-1.3 10 ^3/uL Eosinophils # (Auto) 0.2 0-0.8 10 ^3/uL Basophils # (Auto) 0.1 0-0.2 10 ^3/uL Nucleated Red Blood Cells 0.1 % Sodium Level 133 L 136-145 mmol/L Potassium Level 4.2 3.5-5.1 mmol/L Chloride Level 97 L 98-107 mmol/L Carbon Dioxide Level 30 20-31 mmol/L Anion Gap 6 5-15 Blood Urea Nitrogen 12 9-23 mg/dL Creatinine 0.79 0.700-1.30 mg/dL Glomerular Filtration Rate Calc 108 >90 mL/min BUN/Creatinine Ratio 15.2 10.0-20.0 Serum Glucose 185 H 74-106 mg/dL Calcium Level 9.8 8.7-10.4 mg/dL Troponin I High Sensitivity < 3 L </=54 ng/L SEPSIS Sepsis Screen Date sepsis recognized/suspect: May 17, 2025 Time Sepsis recognized/suspect: 1709 Recent Procedure: Yes (left leg) On Antibiotic Therapy: No Respiratory Rate >20: No Heart Rate >90: No Temp<36 C (96.8 F) or >38.3 C: No SBP <90 or MAP <65 mmHG: No New Acute Mental Status Change: No Is the patient on CPAP, BIPAP,: No Physician Orders Ct Ab Pel With Iv Con Only (05/17/25 13:01) Chest Portable (05/17/25 13:01) Blood Culture (05/17/25 15:06) Cefepime 2gm/50ml Ns (Maxipime 2gm/50ml) (05/17/25 15:15) Admit (05/17/25 18:12) Oxygen By Nasal Cannula (05/17/25 18:12) Stat Ekg For Chest Pain (05/17/25 18:12) Notify Of Changes From Base (05/17/25 18:12) Cefepime 1 Gm (05/17/25 22:00) Pantoprazole Tablet (Protonix Tablet) (05/18/25 06:00) Pantoprazole Tablet (Protonix Tablet) (05/17/25 18:15) Consistent Carb(Ccho)Diabetes (05/17/25 Dinner) Gabapentin Capsule (Neurontin Capsule) (05/17/25 18:15) Gabapentin Capsule (Neurontin Capsule) (05/18/25 10:00) Insulin Lantus (Glargine) (Lantus) (05/17/25 22:00) Complete Blood Count (05/18/25 04:00) Comprehensive Metabolic Panel (05/18/25 04:00) Glucose Blood (Accu-Chek Comfort Curve T (05/17/25 22:00) Mild Sliding Scale (05/17/25 22:00) Dextrose 50% Syringe (05/17/25 18:15) Morphine Sulfate Injection (05/17/25 18:15) Ondansetron Hcl (Zofran) (05/17/25 18:15) Vital Signs Date Time Temp Pulse Resp B/P (MAP) Pulse Ox O2 Delivery O2 Flow Rate FiO2 05/17/25 17:10 56 15 100 Room Air* 0 21 05/17/25 17:10 97.8 56 15 128/69 (88) 100 97.8 05/17/25 16:02 61 18 125/84 05/17/25 15:49 98.0 61 20 125/84 (98) 96 98.0 05/17/25 14:16 98.2 60 16 138/54 (82) 95 98.2 Laboratory Tests Test 05/17/25 10:46 05/17/25 15:16 White Blood Count 7.6 10^3/uL (4.4-10.8) Lactic Acid Level 0.7 mmol/L (0.4-2.0) Medications Medications Dose Ordered Sig/Jaiden Route Start Time Stop Time Status Last Admin Dose Admin Cefepime HCl 50 ml @ 12.5 mls/hr ONCE ONCE IV 05/17/25 15:15 05/17/25 19:14 05/17/25 15:51 12.5 MLS/HR Morphine Sulfate 4 mg ONCE ONCE IV 05/17/25 15:15 05/17/25 15:31 DC 05/17/25 16:02 4 MG Ondansetron HCl 4 mg ONCE ONCE IV 05/17/25 15:15 05/17/25 15:31 DC 05/17/25 15:51 4 MG Sodium Chloride 1,000 ml @ 1,000 mls/hr Q1H ONCE IV 05/17/25 15:15 05/17/25 16:14 DC 05/17/25 16:03 1,000 MLS/HR Assessment/Plan Assessment/Plan Gluteal abscess - blood cultures ordered - IV cefepime and doxycycline Probable post herpetic neuralgia - started on gabapentin 300 mg b.i.d. - topical lidocaine - morphine for severe pain Uncontrolled type 2 diabetes mellitus with hyperglycemia - recent HbA1c more than 10% - on Lantus and sliding scale Possible pyelonephritis/acute cystitis - CT abdomen pelvis with IV contrast shows Minimal possible asymmetric right kidney hypoenhancement with minimal perinephric edema, bladder wall thickening - urine culture ordered - urine bacteria culture ordered - on IV cefepime PUD prophylaxis: Protonix DVT prophylaxis: Enoxaparin Goals of care discussed with the patient and his girlfriend at bedside for over 31 minutes. Full code Plan discussed with Dr. Padilla Plan discussed with: Patient, Other (girlfriend) My Orders Orders - DANILO SANTACRUZ RESIDENT Procedure Category Date Status Time Admit ADMIT 05/17/25 Transmitted 18:12 Oxygen By Nasal RT 05/17/25 Transmitted Cannula 18:12 Stat Ekg For Chest JENN 05/17/25 In Process Pain 18:12 Notify Of Changes JENN 05/17/25 In Process From Base 18:12 Cefepime 1 Gm PHA 05/17/25 Verified 22:00 Pantoprazole Tablet PHA 05/18/25 Verified (Protonix Tablet) 06:00 Pantoprazole Tablet PHA 05/17/25 Verified (Protonix Tablet) 18:15 Consistent DIET 05/17/25 Verified Carb(Ccho)Diabetes Dinner Gabapentin Capsule PHA 05/17/25 Verified (Neurontin Capsule) 18:15 Gabapentin Capsule PHA 05/18/25 Verified (Neurontin Capsule) 10:00 Insulin Lantus PHA 05/17/25 Verified (Glargine) (Lantus) 22:00 Complete Blood Count LAB 05/18/25 Verified 04:00 Comprehensive LAB 05/18/25 Verified Metabolic Panel 04:00 Glucose Blood PHA 05/17/25 Verified (Accu-Chek Comfort 22:00 Mild Sliding Scale PHA 05/17/25 Verified 22:00 Dextrose 50% Syringe PHA 05/17/25 Verified 18:15 Morphine Sulfate PHA 05/17/25 Verified Injection 18:15 Ondansetron Hcl PHA 05/17/25 Verified (Zofran) 18:15 Date of Service: May 17, 2025 Billing Provider: JORDAN PADILLA MD Common Visit Codes: [id number] INP/OBS CARE (HIGH) Secondary Visit Codes: [id number] CARE PLAN 30 MINUTES Date of Service: May 17, 2025 Billing Provider: JORDAN PADILLA MD Common Visit Codes: [id number] INP/OBS CARE(HIGH) Secondary Visit Codes: [id number] CARE PLAN 30 MINUTES DANILO SANTACRUZ RESIDENT May 17, 2025 18:54 JORDAN PADILLA MD May 20, 2025 00:24
[2025-05-17] MEDS: ENOXAPARIN SOD 40 MG/0.4 ML SYRINGE SC ONE (19:00)
[2025-05-17 19:30] VITALS: PULSE 76; RESP 15; O2SAT 95
[2025-05-17] MEDS: GABAPENTIN 300 MG CAP PO ONE (19:47)
[2025-05-17] MEDS: MORPHINE SULFATE INJ 2 MG/ml SYRG IV PRN (19:48)
[2025-05-17] MEDS: PANTOPRAZOLE 40 MG TAB PO ONE (19:48)
[2025-05-17] MEDS: DOXYCYCLINE 100MG/100ML 100 ML IV SCH (20:36)
[2025-05-17 22:02] VITALS: PULSE 60; RESP 18; O2SAT 95
[2025-05-17 22:03] VITALS: BP 146/71; PULSE 60; RESP 18; TEMP 97.2; O2SAT 95
[2025-05-17] MEDS: InsuLIN REG 1unit/0.01ml Soln (100units/ml) SC SCH (22:41)
[2025-05-17] MEDS: INSULIN LANTUS (GLARGINE) 1 /0.01ml (100units/ml) SC SCH (22:42)
[2025-05-17] MEDS: ACCU-CHEK COMFORT CURVE STRIP VI SCH (22:42)
[2025-05-17] MEDS: CEFEPIME 1GM/50ML 50 ML IV SCH (22:51)
[2025-05-17] MEDS: HYDROcodone-ACET 10/325MG TAB PO PRN (23:14)
[2025-05-18 01:00] VITALS: BP 149/94; PULSE 62; RESP 19; TEMP 97.4; O2SAT 95
[2025-05-18 05:00] VITALS: BP 130/70; PULSE 57; RESP 19; TEMP 97.3; O2SAT 98
[2025-05-18] MEDS: PANTOPRAZOLE 40 MG TAB PO SCH (06:09)
[2025-05-18 06:44] LABS: Hematocrit 43.8 % (41.0-53.0); Hemoglobin 15.3 g/dL (13.5-17.5); Mean Corpuscular Hemoglobin 30.7 pg (28.0-32.0); Mean Corpuscular Volume 87.9 fL (80.0-100.0); Nucleated Red Blood Cells % 0.1 %
[2025-05-18 07:07] LABS: Albumin 3.9 g/dL (3.2-4.8); Alkaline Phosphatase 89 U/L (46-116); Anion Gap 10 (5-15); BUN/Creatinine Ratio 13.2 (10.0-20.0); Bilirubin, Total 0.7 mg/dL (0.2-1.0); Blood Urea Nitrogen 10 mg/dL (9-23); Calcium 9.4 mg/dL (8.7-10.4); Carbon Dioxide 28 mmol/L (20-31); Glucose 95 mg/dL (74-106); Total Protein 7.3 g/dL (5.7-8.2)
[2025-05-18 07:13] LABS: Alanine Aminotransferase 43 U/L (7-40); Chloride 100 mmol/L (98-107); Potassium 3.9 mmol/L (3.5-5.1); Sodium 138 mmol/L (136-145)
[2025-05-18 09:00] VITALS: BP 139/85; PULSE 55; RESP 18; TEMP 98.3; O2SAT 94
[2025-05-18] MEDS: ENOXAPARIN SOD 40 MG/0.4 ML SYRINGE SC SCH (10:00)
[2025-05-18] MEDS: GABAPENTIN 300 MG CAP PO SCH (10:12)
[2025-05-18] MEDS: DOXYCYCLINE 100MG/100ML 100 ML IV SCH (10:14)
--- NOTE | 2025-05-18 10:14 | DVHPNRES ---
Progress Note Date Seen: May 18, 2025 Resident Creating Document: BERNA FINNEGAN RESIDENT Subjective Review of Systems Patient is a 50-year-old male with a medical history of type 2 diabetes mellitus presented to the ED with a chief complaint of left flank pain going on for the last 1 month. Patient reports the pain started about a month ago, smqselpi-yh-sdgpiq in intensity, gradually progressive, radiates from the left mid back to the left upper quadrant through the left upper flank, burning in sensation, intermittent episodes of severe pain, improves with [place]/morphine while in the hospital. Patient did not report seeing any rash in that area but is not sure about whether it happened or not. He also reports of having an abscess in his gluteal area for the last week and was treated at the rehab facility. And has been in the rehab facility for the last 2 weeks because of left ankle fracture. He denies any nausea, vomiting, diarrhea or constipation. Denies dysuria, nocturia, increased frequency. Medical history: Type 2 diabetes mellitus non-insulin dependent, history of chickenpox at 18 years age. Surgical history: Left ankle surgery, appendectomy Social history: Patient denies smoking, drug use, no alcohol use for the last 30 days Home medications: Tramadol, tizanidine, ibuprofen, glipizide Patient was seen and examined at bedside. Overnight events were reviewed. The patient reports having mild pain around the flank dermatome and surrounding the abscess. However, he reports feeling better with [place]. He is concerned about his abscess, which she believes growing. He is wheelchair-bound due to left ankle surgery, he reports using insulin for 30 days during that hospital admission. He denies any chest pain, shortness of breath, fever, abdominal pain or any other complaints today. Objective vital signs Vital Sign Date Time Temp Pulse Resp B/P (MAP) Pulse Ox O2 Delivery O2 Flow Rate FiO2 05/18/25 09:00 98.3 55 18 139/85 (103) 94 98.3 05/17/25 22:02 Room Air* 0 21 Total Intake and Output 05/17/25 05/17/25 05/18/25 15:00 23:00 07:00 Intake Total 1150 ml 750 ml Output Total 1500 ml Balance 1150 ml -750 ml medications Current Medications Medications Dose Ordered Sig/Jaiden Route Start Time Stop Time Status Last Admin Dose Admin Cefepime HCl 50 ml @ 12.5 mls/hr Q8HR IV 05/17/25 22:00 05/18/25 06:09 12.5 MLS/HR Pantoprazole Sodium 40 mg DAILY@0600 PO 05/18/25 06:00 05/18/25 06:09 40 MG Gabapentin 300 mg BID PO 05/18/25 10:00 Insulin Glargine 20 units HS SC 05/17/25 22:00 05/17/25 22:42 20 UNITS Diagnostic Test (Pha) 1 strip ACHS 05/17/25 22:00 05/18/25 06:26 1 STRIP Insulin Human Regular ACHS SC 05/17/25 22:00 05/17/25 22:41 4 UNITS Dextrose 50 ml UD PRN IV 05/17/25 18:15 Morphine Sulfate 2 mg Q6HPRN PRN IV 05/17/25 18:15 05/17/25 19:48 2 MG Ondansetron HCl 4 mg Q6HPRN PRN IV 05/17/25 18:15 Enoxaparin Sodium 40 mg DAILY SC 05/18/25 10:00 Acetaminophen/ Hydrocodone Bitart 1 tab Q6HP PRN PO 05/17/25 23:00 05/18/25 05:27 1 TAB Doxycycline Hyclate 100 ml @ 50 mls/hr Q12H IV 05/18/25 09:00 Examination Pt is lying on bed General Appearance: Alert, Oriented X3, Cooperative, Mild distress HEENT: Atraumatic, Mucous membranes moist/pink Respiratory: Clear to auscultation, Normal air movement, No added sounds Cardiovascular: Regular rate, Normal S1, Normal S2, No murmurs Abdominal/ : Active bowel sounds, Soft, no distention, no tenderness Extremities: No edema, Normal pulses, No tenderness/swelling, orthopedic boot/cast placed in the left leg and foot. Skin: two abscesses noted over the sacral region Psych/Mental Status: Mental status NL, Mood NL Nurse was there as thrasher feeder during examination laboratory and microbiology Laboratory Tests 05/18/25 04:27 Test 05/18/25 04:27 Range/Units Serum Glucose 95 74-106 mg/dL BERNA FINNEGAN RESIDENT May 18, 2025 10:13
[2025-05-18 13:00] VITALS: BP 141/92; PULSE 60; RESP 18; TEMP 98.4; O2SAT 98
--- NOTE | 2025-05-18 15:20 | DVHDSRES ---
Discharge Summary Date of Admission Resident Creating Document: BERNA FINNEGAN May 17, 2025 at 18:12 Date of Discharge: May 18, 2025 Labs/Diagnostic Data: Laboratory Results Test 05/18/25 10:45 05/18/25 04:27 05/17/25 15:16 05/17/25 10:59 POC Glucose 208 mg/dl (70-106) White Blood Count 6.3 10^3/uL (4.4-10.8) Red Blood Count 4.98 10^6/uL (4.5-5.90) Hemoglobin 15.3 g/dL (13.5-17.5) Hematocrit 43.8 % (41.0-53.0) Mean Corpuscular Volume 87.9 fL (80.0-100.0) Mean Corpuscular Hemoglobin 30.7 pg (28.0-32.0) Mean Corpuscular Hemoglobin Concent 34.9 g/dL (32.0-36.0) Red Cell Distribution Width 13.0 % (11.8-14.3) Platelet Count 255 10^3/uL (140-450) Mean Platelet Volume 8.9 fL (6.9-10.8) Neutrophils (%) (Auto) 63.7 % (37.0-80.0) Lymphocytes (%) (Auto) 24.2 % (10.0-50.0) Monocytes (%) (Auto) 8.0 % (0.0-12.0) Eosinophils (%) (Auto) 3.5 % (0.0-7.0) Basophils (%) (Auto) 0.6 % (0.0-2.0) Neutrophils # (Auto) 4.0 10 ^3/uL (1.6-8.6) Lymphocytes # (Auto) 1.5 10 ^3/uL (0.4-5.4) Monocytes # (Auto) 0.5 10 ^3/uL (0-1.3) Eosinophils # (Auto) 0.2 10 ^3/uL (0-0.8) Basophils # (Auto) 0 10 ^3/uL (0-0.2) Nucleated Red Blood Cells 0.1 % Erythrocyte Sedimentation Rate 23 mm/hr (0-20) Sodium Level 138 mmol/L (136-145) Potassium Level 3.9 mmol/L (3.5-5.1) Chloride Level 100 mmol/L (98-107) Carbon Dioxide Level 28 mmol/L (20-31) Anion Gap 10 (5-15) Blood Urea Nitrogen 10 mg/dL (9-23) Creatinine 0.76 mg/dL (0.700-1.30) Glomerular Filtration Rate Calc 109 mL/min (>90) BUN/Creatinine Ratio 13.2 (10.0-20.0) Serum Glucose 95 mg/dL (74-106) Calcium Level 9.4 mg/dL (8.7-10.4) Total Bilirubin 0.7 mg/dL (0.2-1.0) Aspartate Amino Transferase (AST) 27 U/L (13-40) Alanine Aminotransferase (ALT) 43 U/L (7-40) Alkaline Phosphatase 89 U/L (46-116) C-Reactive Protein High Sensitivity 1.06 mg/dL (<1.0) Total Protein 7.3 g/dL (5.7-8.2) Albumin 3.9 g/dL (3.2-4.8) Lactic Acid Level 0.7 mmol/L (0.4-2.0) Urine Color Light-yellow (Yellow) Urine Clarity Clear (Clear) Urine pH 6.0 (5.0-9.0) Urine Specific [place] 1.010 (1.001-1.035) Urine Protein Negative (Negative) Urine Ketones Trace (Negative) Urine Blood Negative /uL (Negative) Urine Nitrite Negative (Negative) Urine Bilirubin Negative (Negative) Urine Urobilinogen Normal mg/dL (Negative) Urine Leukocyte Esterase Negative /uL (Negative) Urine RBC 1 /hpf (0 - 3) Urine Microscopic WBC < 1 /HPF (0-3) Urine Squamous Epithelial Cells Few /hpf (<5) Urine Bacteria Few /hpf (None Seen) Urine Glucose Normal mg/dL (Normal) Test 05/17/25 10:46 Troponin I High Sensitivity < 3 ng/L (</=54) Other Laboratory Tests 05/18/25 04:27 Brief Hx & Hospital Course: Patient is a 50-year-old male with a medical history of type 2 diabetes mellitus presented to the ED with a chief complaint of left flank pain going on for the last 1 month. Patient reports the pain started about a month ago, wuozchdx-di-ssivqy in intensity, gradually progressive, radiates from the left mid back to the left upper quadrant through the left upper flank, burning in sensation, intermittent episodes of severe pain, improves with [place]/morphine while in the hospital. Patient did not report seeing any rash in that area but is not sure about whether it happened or not. He also reports of having an abscess in his gluteal area for the last week and was treated at the rehab facility. And has been in the rehab facility for the last 2 weeks because of left ankle fracture. He denies any nausea, vomiting, diarrhea or constipation. Denies dysuria, nocturia, increased frequency. Medical history: Type 2 diabetes mellitus non-insulin dependent, history of chickenpox at 18 years age. Surgical history: Left ankle surgery, appendectomy Social history: Patient denies smoking, drug use, no alcohol use for the last 30 days Home medications: Tramadol, tizanidine, ibuprofen, glipizide Given his history of chickenpox, uncontrolled diabetes mellitus and typical dermatomal distribution the patient was clinically diagnosed with post herpetic neuralgia, given 300 mg b.i.d. gabapentin, [place]. Which significantly improved his pain and burning sensation. The patient also had underwent a ankle surgery few weeks ago, followed by trauma. He reports pain in the left leg to, Corn[place]opia helped with the leg pain as well. During, Blood culture and abscess cultures sent. The patient also has to gluteal abscesses, for which she was treated with IV cefepime and doxycycline. Patient was advised to follow up with outpatient surgery for possible incision and drainage. Obstructive uropathy was ruled out by abdomen pelvis CT scan. The patient was treated conservatively. Was tolerating diet and food, verbalized understanding of the treatment and discharge plan. The patient will be placed to SNF for his nonweightbearing status of left leg, patient is ambulating with wheelchair. The patient was hemodynamically stable the day of discharge. General Appearance: Alert, Oriented X3, Cooperative, Mild distress HEENT: Atraumatic, Mucous membranes moist/pink Respiratory: Clear to auscultation, Normal air movement, No added sounds Cardiovascular: Regular rate, Normal S1, Normal S2, No murmurs Abdominal/ : Active bowel sounds, Soft, no distention, no tenderness Extremities: No edema, Normal pulses, No tenderness/swelling, orthopedic boot/cast placed in the left leg and foot. Skin: two abscesses noted over the sacral region Psych/Mental Status: Mental status NL, Mood NL Nurse was there as draw fire operator during examination Operations or Procedures CXR no acute abnormality abdominal pelvis CT:1. Minimal possible asymmetric right kidney hypoenhancement with minimal perinephric edema. 2. Imaging finding is nonspecific and may be related to acute kidney injury however pyelonephritis not excluded. 3. Recommend clinical correlation. 4. Circumferential bladder wall thickening, which may be seen in the setting of acute versus chronic cystitis and correlate with urinalysis. Condition at Discharge: Stable Final Diagnosis/Problems List Gluteal abscess Probable post herpetic neuralgia Uncontrolled type 2 diabetes mellitus with hyperglycemia Possible pyelonephritis/acute cystitis, ruled out Discharge Disposition: Long-Term Facility Discharge Instruct/Medications Diet: Consistent carbohydrate Activity: No Restrictions, As Tolerated Follow Up/Referral: Follow up with the primary care provider in 1 week Follow up with the surgeon for recurrent boils in the gluteal area in the outpatient clinic Medications: as per SNF paperwork Scheduled Docusate Sodium (Docusate Sodium), 100 MG PO BID Gabapentin (Gabapentin), 1 TAB PO BID Metoclopramide Hcl (Reglan), 10 MG PO BID Pantoprazole Sodium Sesquihydr (Protonix), 40 MG PO DAILY Scheduled PRN Baclofen (Baclofen), 10 MG PO BID PRN Hydrocodone-Acetaminophen (Hydrocodone Bitartrate/AC 10-325 mg), 1 TAB PO QIDPRN PRN Ibuprofen Micronized (Ibuprofen), 600 MG PO BIDP PRN Tizanidine Hydrochloride (Tizanidine Hcl), 1 TAB PO Q8HPRN PRN for PAIN SCALE 1 THRU 6, (Reported) Discharge Statement: "Patient was advised to return to the ER or call 911 if any headaches, dizziness, shortness of breath, chest pain, abdominal pain, bleeding, fevers, or worsening of medical condition. Patient was counseled about treatment plan, medications, possible side effects, patientverbalized understanding. All questions were answered to the best of my ability. This discharge took greater then 30 minutes in planning, reviewing documentation, counseling the patient, and discussing with other team members." ASSESSMENT ASSESSMENT Assessment Gluteal abscess Probable post herpetic neuralgia Uncontrolled type 2 diabetes mellitus with hyperglycemia Possible pyelonephritis/acute cystitis, ruled out Date of Service: May 18, 2025 Billing Provider: JORDAN PAYNE MD Common Visit Codes: 42829-EPC/OBS DISCH DAY >30min KAIN,BERNA RESIDENT May 18, 2025 15:20 JORDAN PAYNE MD May 20, 2025 00:24
[2025-05-18 17:00] VITALS: BP 138/86; PULSE 59; RESP 17; TEMP 98.4; O2SAT 96
[2025-05-18 21:00] VITALS: BP 146/86; PULSE 82; RESP 18; TEMP 98.5; O2SAT 95
== END 2025-05-18 20:50 | DRG 383 ==
LOC: ER 09:52 → OVERFLOW 18:12 → CENTRAL 18:13
PROVIDERS: ADMIT Internal Medicine Geriatric Medicine; ATTEND Emergency Medicine
DX: L02.31 Cutaneous abscess of buttock (principal); B02.29 Other postherpetic nervous system involvement; E11.65 Type 2 diabetes mellitus with hyperglycemia; Z90.49 Acquired absence of other specified parts of digestive tract
CPT/HCPCS: 36415; 71045; 74177; 80048; 80053; 81001; 82962; 83605; 84484; 85025; 85652; 86141; 87040; 87081; 87086; 96361; 96365; 96375; G0378; J0692; J1815; J2405

== ENCOUNTER 2025-05-31 08:20 | Emergency (ER) | payer MEDICAID ==
[~2025-05-31] VITALS: Ht 170.2 cm; Wt 109.0 kg
[~2025-05-31 08:20] MED LIST changes: -ALBUAER3 IN; -GLIP10TA21 PO; -HYDR-4902 PO; -LACT10SO3 PO; -PRED10TA PO; -TRAM-626 PO; -TRAM50TA2 PO
--- NOTE | 2025-05-31 08:43 | ED.PDOC ---
Back pain HPI HPI Comments A 50 YEAR OLD MALE PRESENTS TO THE ED WITH COMPLAINT OF LOWER BACK PAIN. PT HAS BEEN HAVING LOWER BACK PAIN FOR THE PAST 3 DAYS. PT STATES THE PAIN IS CONSTANT, NON-RADIATING, WITH NOTED EXACERBATION OF PAIN WITH TAKING BREATHS AND MOVEMENT. PT WAS DISCHARGED FROM [facility] ON 05/18/25 WITH NORCO AND GABAPENTIN RX. PT REQUESTS DILAUDID PAIN INJECTION AT THIS TIME. PATIENT DENIES FEVER, CHILLS, SHORTNESS OF BREATH, CHEST PAIN, ABDOMINAL PAIN, NAUSEA, VOMITING, HEADACHE, OR OTHER COMPLAINTS. NO OTHER SYMPTOMS OR MODIFYING FACTORS AT THIS TIME. PATIENT IS ALERT, ORIENTED X 4, AND HAS STEADY GAIT. Chief Complaint: Back Pain Time Seen by MD: 08:38 Reviewed Notes: Nurses Notes, Medications, Allergies Allergies: Coded Allergies: NO KNOWN ALLERGIES (Unverified , 11/11/23) Home Meds Active Scripts Docusate Sodium (Docusate Sodium) 100 Mg Cap, 100 MG PO BID for 30 Days, #60 CAP 0 Refills Prov:SOFIE PAZ MD 04/27/25 Baclofen (Baclofen) 10 Mg Tab, 10 MG PO BID PRN for 7 Days, #20 TAB 0 Refills Prov:SOFIE PAZ MD 04/27/25 Hydrocodone-Acetaminophen (Hydrocodone Bitartrate/AC 10-325 mg) 1 Tab Tab, 1 TAB PO QIDPRN PRN for 7 Days, #28 TAB 0 Refills Prov:SOFIE PAZ MD 04/27/25 Pantoprazole Sodium Sesquihydr (Protonix) 40 Mg Tab, 40 MG PO DAILY, #30 TAB 0 Refills Prov:SOFIE PAZ MD 04/27/25 Ibuprofen Micronized (Ibuprofen) 600 Mg Tab, 600 MG PO BIDP PRN, #30 TAB 0 Refills Prov:SOFIE PAZ MD 04/27/25 Metoclopramide Hcl (Reglan) 10 Mg Tab, 10 MG PO BID for 5 Days, #10 TAB Prov:SUSAN CARRILLO MD 01/08/24 Gabapentin (Gabapentin) 600 Mg Tab, 1 TAB PO BID, #40 TAB Prov:DARYN BHATT 11/11/23 Reported Medications Tizanidine Hydrochloride (Tizanidine Hcl) 4 Mg Tab, 1 TAB PO Q8HPRN PRN for PAIN SCALE 1 THRU 6 04/23/25 Information Source: Patient Mode of Arrival: Wheelchair Timing: Days Duration: Since onset, Days Location of Back pain: (B) Lower back Severity: Moderate Prehospital treatment: None Quality: Aching, Cramping Onset: Spontaneous Circumstance: Other History of: None Modifying Factors: Movement, Twisting, Breathing, Walking Associated signs and symptoms: None Past Medical History PAST MEDICAL HISTORY: DM Surgical History: Denies all surgeries Family History Family History: Reviewed,noncontributory to illness, Unknown Social History Smoker: Non-Smoker Alcohol: Heavy Drugs: Denies Drug Use Lives In: Home Constitutional: reports: others (ANXIOUS ); denies: chills, diaphoresis, fatig ue, fever, malaise, sweats, weakness EENTM: denies: blurred vision, double vision, ear bleeding, ear discharge, ear drainage, ear pain, ear ringing, eye pain, eye redness, hearing loss, mouth pain, mouth swelling, nasal discharge, nose bleeding, nose congestion, nose pain, photophobia, tearing, throat pain, throat swelling, voice changes, others Respiratory: denies: cough, hemoptysis, orthopnea, SOB at rest, shortness of breath, SOB with excertion, stridor, wheezing, others Cardiovascular: denies: chest pain, dizzy spells, diaphoresis, Dyspnea on exertion, edema, irregular heart beat, left arm pain, lightheadedness, palpitations, PND, syncope, others Gastrointestinal: denies: abdomen distended, abdominal pain, blood streaked bowels, constipated, diarrhea, dysphagia, difficulty swallowing, hematemesis, melena, nausea, poor appetite, poor fluid intake, rectal bleeding, rectal pain, vomiting, others Genitourinary: denies: burning, dysuria, flank pain, frequency, hematuria, incontinence, penile discharge, penile sore, pain, testicle pain, testicle swelling, urgency, others Neurological: denies: dizziness, fainting, headache, left sided numbness, left sided weakness, numbness, paresthesia, pre-existing deficit, right sided numbness, right sided weakness, seizure, speech problems, tingling, tremors, weakness, others Musculoskeletal: reports: back pain, muscle pain; denies: gout, joint pain, joint swelling, muscle stiffness, neck pain, others Integumetry: denies: bruises, change in color, change in hair/nails, dryness, laceration, lesions, lumps, rash, wounds, others Allergic/Immunocompromised: denies: Difficulty Healing, Frequent Infections, Hives, Itching, others Hematologic/Lymphatic: denies: anemia, blood clots, easy bleeding, easy bruising, swollen glands, others Endocrine: denies: excessive hunger, excessive sweating, excessive thirst, excessive urination, flushing, intolerance to cold, intolerance to heat, unexplained weight gain, unexplained weight loss, others Psychiatric: denies: anxiety, bipolar disorder, depression, hopeless, panic disorder, schizophrenia, sleepless, suicidal, others All Other Systems: Reviewed and Negative Physical Exam General Appearance: Mild Distress, Obese HEENT: Normal ENT Inspection, PERRL/EOMI, Pharynx Normal, TMs Normal Neck: Full Range of Motion, Non-Tender, Normal, Normal Inspection Respiratory: Chest Non-Tender, Lungs Clear, No Accessory Muscle Use, No Respiratory Distress, Normal Breath Sounds Cardiovascular: No Edema, No JVD, No Murmur, No Gallop, Normal Peripheral Pulses, Regular Rate/Rhythm Breast Exam: Deferred Gastrointestinal: No Organomegaly, Non Tender, No Pulsatile Mass, Normal Bowel Sounds, Soft Genitalia: Deferred Pelvic: Deferred Rectal: Deferred Extremities: No calf tenderness, Normal capillary refill, Normal inspection, Normal range of motion, Non-tender, No pedal edema Musculoskeletal : Location: Bilateral Extremity Location: Back Apperance: Tenderness: Moderate (MUSCLE SPASM ON LOW BACK, NO BONY TENDERNESS, SWELLING AND DEFORMITY. ) Neurologic: Alert, marine fire fighter II-XII nml as Tested, No Motor Deficits, Normal Affect, Normal Mood, No Sensory Deficits Cerebellar Function: Normal Reflexes: Normal Skin: Dry, Normal Color, Warm Peripheral Pulses: 2+ carotid (R), 2+ carotid (L), 2+ dorsalis pedis (R), 2+ dorsalis pedis (L) Lymphatic: No Adenopathy Was a procedure done? Was a procedure done?: No Back Pain Differential Dx Differential Diagnosis: Musculoskeletal Pain Other Differential Diagnosis DJD, MUSCLE STRAIN, MUSCLE SPASM, X-Ray, Labs, Meds, VS Vital Signs Date Time Temp Pulse Resp B/P (MAP) Pulse Ox O2 Delivery O2 Flow Rate FiO2 10/8/25 08:21 98.9 75 18 139/86 95 98.9 [facility] [id number]: [id number] : 1975 LOC: ER ROOM / BED: / AGE / SEX: 50 / M ADM STATUS: REG ER SERVICE 1 ORDERING PHYSICIAN: DARYN BHATT PROCEDURE(s): LUMB2 - LUMBAR SPINE 3 VIEW REASON: LOW BACK PAIN, NO INJURY ORDER NUMBER(s): [id number], ACCESSION NUMBER(s): [id number] INDICATION: LOW BACK PAIN, NO INJURY TECHNIQUE: 3 views of the lumbar spine were obtained. COMPARISON: None FINDINGS: There are no acute fractures or subluxations. IMPRESSION: No acute fracture or subluxation. ATED BY: BROCK BOWMAN MD DICTATED DATE/TIME: 05/31/25909 SIGNED BY: BROCK BOWMAN MD SIGNED DATE/TIME: 05/31/25909 CC: X-Ray, Labs, Meds, VS Comment COURSE: EXTERNAL MEDICAL RECORDS REVIEWED: [NONE] INDEPENDENT HISTORIANS: [NONE] SOCIAL DETERMINANTS OF HEALTH: [NONE] LABS ORDERED: NONE REVIEWED AND INTERPRETED RESULTS: NONE IMAGING ORDERED: LUMBAR SPINE X-RAY. PT HAD CT-ABD/PELVIC TEST 2 WEEKS AGO IN THIS ER WNL. TREATMENTS ORDERED: DILAUDID AND ZOFRAN IM PROCEDURES PERFORMED: NONE CRITICAL CARE TIME: NONE I HAVE DISCUSSED THE PATIENT WITH THE ATTENDING PHYSICIAN, DR. HATFIELD SHE AGREES WITH THE PATIENT'S PLAN OF CARE AND DISPOSITION. OLD CHART REVIEWED. BASED ON HISTORY OF PRESENT ILLNESS, AND PHYSICAL EXAM, PATIENT WILL BE DISCHARGED HOME. PT HAS NORCO PAIN MEDICATION AT HOME. . SHARED DECISION MAKING: DISCUSSED WITH PATIENT THAT THEIR WORKUP WAS NORMAL. PATIENT INSTRUCTED TO FOLLOW UP WITH PRIMARY CARE PROVIDER IN 1-2 DAYS FOR RE-EV ALUATION OF SYMPTOMS. PATIENT VERBALIZES UNDERSTANDING TO RETURN TO ED FOR NEW OR WORSENING SYMPTOMS OR IF FOLLOW UP WITH PCP CANNOT BE OBTAINED. PATIENT FEELS COMFORTABLE GOING HOME AT THIS TIME. ALL QUESTIONS ADDRESSED AT TIME OF DISCHARGE. Time of 1ST Reevaluation: 09:40 Reevaluation 1ST: Improved Patient Education/Counseling: Diagnosis, Treatment, Need For Follow Up Family Education/Counseling: Diagnosis, Treatment, Need For Follow Up Medical Screening: No EMC Exist At This Time SEPSIS Sepsis Screen Date sepsis recognized/suspect: May 31, 2025 Time Sepsis recognized/suspect: 821 Recent Procedure: No On Antibiotic Therapy: No Respiratory Rate >20: No Heart Rate >90: No Temp<36 C (96.8 F) or >38.3 C: No SBP <90 or MAP <65 mmHG: No New Acute Mental Status Change: No Is the patient on CPAP, BIPAP,: No Physician Orders Lumbar Spine 3 View (05/31/25 08:32) Hydromorphone Injection (Dilaudid Inject (05/31/25 09:30) Vital Signs Date Time Temp Pulse Resp B/P (MAP) Pulse Ox O2 Delivery O2 Flow Rate FiO2 05/31/25 08:21 98.9 75 18 139/86 95 98.9 Departure 1 Departure Time of Disposition: 09:40 Impression: Primary Impression: Low back strain Qualified Codes: S39.012A - Strain of muscle, fascia and tendon of lower back, initial encounter Disposition: HOME / SELF CARE / HOMELESS Condition: Stable Additional Instructions: INSTRUCTIONS: FOLLOW-UP WITH PCP IN 1 TO 2 DAYS. TAKE MEDICATIONS PRESCRIBED. RETURN TO ED FOR ANY NEW OR WORSENING SYMPTOMS. Discharged With: Self, Relative Critical Care Note Critical Care Time?: No Stability Stability form required: No Heart Score Heart Score: Heart Score Response (Comments) Value History N/A 0 EKG N/A 0 Age N/A 0 Risk Factors N/A 0 Troponin N/A 0 Total 0 I personally scribed for DARYN BHATT ([email or web address]) on 05/31/25 at 08:43. Elec tronically submitted by Geneva Miranda ([facility]). I personally scribed for DARYN BHATT ([email or web address]) on 05/31/25 at 08:44. E lectronically submitted by Geneva Miranda ([facility] DARYN BHATT May 31, 2025 08:43
[2025-05-31] MEDS ORDERED: MEPERIDINE HCL (50 MG/ML) 1 ML VIAL IM ONE (08:45)
--- NOTE | 2025-05-31 09:13 | DVH ---
INDICATION: LOW BACK PAIN, NO INJURY TECHNIQUE: 3 views of the lumbar spine were obtained. COMPARISON: None FINDINGS: There are no acute fractures or subluxations. IMPRESSION: No acute fracture or subluxation.
[2025-05-31] MEDS: ONDANSETRON ODT 4 MG TAB PO ONE (09:32)
[2025-05-31] MEDS: HYDROmorphone HCL 2 MG/ML VL/or syr IM ONE (09:33)
[2025-05-31 09:34] VITALS: BP 138/73; PULSE 72; RESP 18; TEMP 97.8; O2SAT 96
== END 2025-05-31 09:36 | disposition home or self-care (01) ==
LOC: ER 08:20
DX: S39.012A Strain of muscle, fascia and tendon of lower back, initial encounter (principal); Z79.899 Other long term (current) drug therapy; E11.9 Type 2 diabetes mellitus without complications; X58.XXXA Exposure to other specified factors, initial encounter; Y93.89 Activity, other specified; Y92.89 Other specified places as the place of occurrence of the external cause; Y99.8 Other external cause status
CPT/HCPCS: 72100; 96372; 99283; J1171; Q0162

== ENCOUNTER → 2025-06-06 | Outpatient (CLI) | payer MEDICAID ==
[2025-06-06 12:29] LABS: Hematocrit 47.9 % (41.0-53.0); Hemoglobin 16.7 g/dL (13.5-17.5); Mean Corpuscular Hemoglobin 30.7 pg (28.0-32.0); Mean Corpuscular Volume 88.2 fL (80.0-100.0); Nucleated Red Blood Cells % 0.1 %
[2025-06-06 12:45] LABS: Urine Protein, UAD Negative (Negative)
[2025-06-06 13:14] LABS: Alanine Aminotransferase 55 U/L (7-40); Albumin 4.6 g/dL (3.2-4.8); Alkaline Phosphatase 107 U/L (46-116); Anion Gap 7 (5-15); BUN/Creatinine Ratio 16.9 (10.0-20.0); Bilirubin, Total 0.6 mg/dL (0.2-1.0); Blood Urea Nitrogen 13 mg/dL (9-23); Calcium 9.9 mg/dL (8.7-10.4); Carbon Dioxide 32 mmol/L (20-31); Chloride 97 mmol/L (98-107); Glucose 138 mg/dL (74-106); Potassium 4.4 mmol/L (3.5-5.1); Sodium 136 mmol/L (136-145); Total Protein 8.3 g/dL (5.7-8.2)
== END | disposition home or self-care (01) ==
LOC: LAB 12:12
PROVIDERS: ATTEND Nurse Practitioner Family
DX: N39.0 Urinary tract infection, site not specified (principal)
CPT/HCPCS: 36415; 80053; 81003; 85025; 87086